=== PATIENT | female | born 1980 | race American Indian/Alaskan Native ===

== ENCOUNTER 2023-01-15 11:22 | Outpatient (CLI) | payer BC, OTHER, SELFPAY ==
[2023-01-15 23:43] LABS: Chlamydia DNA Amplified* NOT DETECTED (No Detected); GC DNA Amplified* NOT DETECTED (No Detected)
== END 2023-01-15 11:23 | disposition home or self-care (01) ==
PROVIDERS: Visit Provider Registered Nurse
DX: R10.2 Pelvic and perineal pain (principal)
CPT/HCPCS: 87086; 87186; 87491; 87591

== ENCOUNTER 2023-02-19 12:59 | Outpatient (CLI) | payer BC, SELFPAY | END 2023-02-19 13:00 | disposition home or self-care (01) | PROVIDERS: Visit Provider Family Medicine | DX: R10.11 Right upper quadrant pain (principal); F19.91 Other psychoactive substance use, unspecified, in remission | CPT/HCPCS: 80053; 80306; 83690; 84443 ==

== ENCOUNTER 2023-04-09 15:45 | Outpatient (CLI) | payer BC, SELFPAY ==
--- NOTE | 2023-04-09 16:00 | CRLHL7_ITS ---
For Patients: As a result of the Century Cures Act, medical imaging exams and procedure reports are released immediately into your electronic medical record. You may view this report before your referring provider. If you have questions, please contact your health care provider. INDICATION: Abdominal pain COMPARISON: none TECHNIQUE: Real time henry scale imaging and color Doppler analysis was performed of the right upper quadrant. FINDINGS: The liver measures 18.7 cm. Increased echotexture noted throughout the liver. No intrahepatic mass. There is a normal appearance of the hepatic IVC and proximal abdominal aorta. There is no evidence of ascites. The gallbladder is of normal size and there is no evidence of intraluminal stones or sludge. The gallbladder wall measures 2.2 mm in thickness. The common bile duct is of normal size and measures 5.4 mm in diameter at the level of the pasha hepatis. The pancreas appears normal. There is no evidence of a stone or hydronephrosis within the right kidney. The right kidney measures 11.5 cm in length. IMPRESSION: Hepatic steatosis and hepatomegaly. Dictated by Alfredito Guzman MD @ 04/10/2023 11:53:24 AM (Electronically Signed)
== END 2023-04-09 15:46 | disposition home or self-care (01) ==
PROVIDERS: PCP Family Medicine; Visit Provider Family Medicine
DX: R10.9 Unspecified abdominal pain (principal); K76.0 Fatty (change of) liver, not elsewhere classified
CPT/HCPCS: 76705

== ENCOUNTER 2023-05-22 14:42 | Outpatient (CLI) | payer BC, SELFPAY ==
--- NOTE | 2023-05-22 14:40 | CRLHL7_ITS ---
For Patients: As a result of the Century Cures Act, medical imaging exams and procedure reports are released immediately into your electronic medical record. You may view this report before your referring provider. If you have questions, please contact your health care provider. BILATERAL SCREENING MAMMOGRAM WITH COMPUTER-AIDED DETECTION AND TOMOSYNTHESIS TECHNIQUE: CC, MLO and implant-displaced views were obtained. These mammographic images have been obtained using full-field digital technique. These mammographic images were interpreted with the benefit of computer-aided detection. Breast tomosynthesis was used in this interpretation. COMPARISON FILM: None. This is a baseline study. FINDINGS: There are scattered areas of fibroglandular density. IMPRESSION: There is no radiographic evidence for malignancy. ASSESSMENT: BI-RADS Category 2: Benign RECOMMENDATION: Routine screening mammogram in 1 year. A lay language report of this examination will be provided to the patient. ALFREDITO HAYWOOD M.D. Diagnostic Radiologist [email or web address] Transcribed: 2:[address]/Dictated by: Alfredito Haywood MD @ 05/25/2023 10:23:00 AM (Electronically Signed)
== END 2023-05-22 14:43 | disposition home or self-care (01) ==
PROVIDERS: PCP Family Medicine; Visit Provider Family Medicine
DX: Z12.31 Encounter for screening mammogram for malignant neoplasm of breast (principal)
CPT/HCPCS: 77063; 77067

== ENCOUNTER 2023-06-03 13:07 | Outpatient (CLI) | payer BC, SELFPAY | END 2023-06-03 13:08 | disposition home or self-care (01) | LOC: RAD 13:09 | PROVIDERS: PCP Family Medicine; Visit Provider Family Medicine | DX: R01.1 Cardiac murmur, unspecified (principal); I34.0 Nonrheumatic mitral (valve) insufficiency; R10.9 Unspecified abdominal pain | CPT/HCPCS: 93306 ==

== ENCOUNTER 2024-10-25 12:12 | Outpatient (CLI) | payer BC, SELFPAY ==
[2024-10-25 18:40] LABS: Bacterial Vaginosis* POSITIVE (Negative); Candida glab/krus NOT DETECTED (No Detected); Candida species NOT DETECTED (No Detected); Trichomonas vaginalis NOT DETECTED (No Detected)
[2024-10-25 19:12] LABS: Chlamydia DNA Amplified* NOT DETECTED (No Detected); GC DNA Amplified* NOT DETECTED (No Detected)
[2024-10-28 20:21] LABS: HPV Source Cervix; HPV, High Risk by TMA Not Detected
[2024-11-01 14:06] LABS: Pap Test Reviewed by Path Done
== END 2024-10-25 12:13 | disposition home or self-care (01) ==
PROVIDERS: Visit Provider Registered Nurse
DX: N93.9 Abnormal uterine and vaginal bleeding, unspecified (principal); Z11.3 Encounter for screening for infections with a predominantly sexual mode of transmission; Z12.4 Encounter for screening for malignant neoplasm of cervix; Z11.4 Encounter for screening for human immunodeficiency virus [HIV]; Z11.51 Encounter for screening for human papillomavirus (HPV)
CPT/HCPCS: 81513; 86592; 86703; 86803; 87340; 87481; 87491; 87591; 87624; 87625; 87661; 88141; 88142

== ENCOUNTER 2024-10-27 14:39 | Outpatient (CLI) | payer BC, SELFPAY ==
--- OUTSIDE RECORDS SUMMARY | 2008-03-26 22:37 | XMS_ITS | Encounter Summary ---
Author Organization [facility] Address [address] [place] [address] Care Team Providers Care Air Crew Member Name Role Phone Jessica Espinosa MD Primary Care Provider [phone] Lulu Lopez PROOF LOAD MECHANIC Unavailable Encounter Details Date Type Department Care Team (Late st Contact Info) Description 03/26/2008 9:37 PM [facility] in [address] [phone] Farhad Marroquin MD [facility] [address] [facility] [address] [place], [place] [address] Social History Tobacco Use Types Packs/Day Years Used Date Smoking Tobacco: Former Cigarettes 0.5 16 0 05/12/1992 - 05/12/2008 Smokeless Tobacco: Former Comments:started age 11 Alcohol Use Standard Drinks/Week Comments No 0 (1 standard drink = 0.6 oz pur e alcohol) quit Comments No Sex and Gender Information Value Date Recorded Sex Assigned at Female 07/15/2023 10:49 AM CDT Legal Sex Female 4:14 AM BUSINESS PROCESS COORDINATOR Gender Identity Female 07/15/2023 10:49 AM CDT Sexual Orientation Bisexual 07/15/2023 10 :49 AM CDT Occupation Industry Job Start Date Job End Date homemaker Not on file Not on file Not on file Not on file Not on file Not on file Not on file documented as of this encounter Plan of Treatment Not on file documented as of this encounter Visit Diagnoses Not on filedocumented in this encounter Additional Health Concerns Infection Onset Date Last Indicated Resolved Time Rule Out COVID-19 05/17/2021 05/17/2021 05/18/2021 2:11 AM BUSINESS PROCESS COORDINATOR documented as of this encounter Care Teams Air Crew Member Relationship Specialty Start Date End Date Jessica Espinosa MD PCP - General 07/28/07 Lulu Lopez NP [facility] 701 [facility] 95 [place] [address] PCP - Obstetrics/Gynecology 02/05/07 documented as of this encounter
--- OUTSIDE RECORDS SUMMARY | 2008-04-02 01:02 | XMS_ITS | Encounter Summary ---
Author Organization [place] Address [address] [place] [address] Care Team Providers Care Nuclear Waste Process Operator Name Role Phone Jessica Espinosa MD Primary Care Provider [phone] Lulu Lopez SHODER FILLER Unavailable Encounter Details Date Type Department Care Team (Late st Contact Info) Description 04/02/2008 12:02 AM [facility] in [address] [phone] Jarett Gonzalez MD [address] [place], [place] [phone] Social History Tobacco Use Types Packs/Day Years [...] AM CDT Legal Sex Female 4:14 AM FORGING ENGINEER Gender Identity Female 07/15/2023 10:49 AM CDT [...] Out COVID-19 05/17/2021 05/17/2021 05/18/2021 2:11 AM FORGING ENGINEER documented as of this encounter Care Teams Nuclear Waste Process Operator Relationship Specialty Start Date End Date Jessica Espinosa MD PCP - General 07/28/07 Lulu Lopez NP [facility] 701 [facility] 95 [place] [address] PCP - Obstetrics/Gynecology 02/05/07 documented as of this encounter
--- OUTSIDE RECORDS SUMMARY | 2008-04-02 16:15 | XMS_ITS | Encounter Summary ---
Author Organization [place] Address [address] [place] [address] Care Team Providers Care Chemical Project Engineer Name Role Phone Jessica Espinosa MD Primary Care Provider [phone] Lulu Lopez TRIM SETTER HELPER Unavailable Encounter Details Date Type Department Care Team (Late st Contact Info) Description 04/02/2008 3:15 PM [facility] in [address] [phone] Farhad Unger MD [address] [place], [place] [phone] Social History Tobacco Use Types Packs/Day Years [...] AM CDT Legal Sex Female 4:14 AM TRAIN OPERATOR Gender Identity Female 07/15/2023 10:49 AM CDT [...] Out COVID-19 05/17/2021 05/17/2021 05/18/2021 2:11 AM TRAIN OPERATOR documented as of this encounter Care Teams Chemical Project Engineer Relationship Specialty Start Date End Date Jessica Espinosa MD PCP - General 07/28/07 Lulu Lopez NP [facility] 701 [facility] [address] [facility] 95 [place] [address] PCP - Obstetrics/Gynecology 02/05/07 documented as of this encounter
--- OUTSIDE RECORDS SUMMARY | 2008-04-02 19:11 | XMS_ITS | Encounter Summary ---
Author Organization [place] Address [address] [place] [address] Care Team Providers Care De Ionizer Operator Name Role Phone Jessica Espinosa MD Primary Care Provider [phone] Lulu Lopez TELECOMMUNICATIONS ENGINEER Unavailable Encounter Details Date Type Department Care Team (Late st Contact Info) Description 04/02/2008 6:11 PM [facility] in [address] [phone] Farhad Unger MD [address] [place], [place] [phone] Social History Tobacco Use Types Packs/Day Years [...] AM CDT Legal Sex Female 4:14 AM BLAST FURNACE AUXILIARIES SUPERVISOR Gender Identity Female 07/15/2023 10:49 AM CDT [...] Out COVID-19 05/17/2021 05/17/2021 05/18/2021 2:11 AM BLAST FURNACE AUXILIARIES SUPERVISOR documented as of this encounter Care Teams De Ionizer Operator Relationship Specialty Start Date End Date Jessica Espinosa MD PCP - General 07/28/07 Lulu Lopez NP [facility] 701 [facility] [address] [place] [address] PCP - Obstetrics/Gynecology 02/05/07 documented as of this encounter
--- OUTSIDE RECORDS SUMMARY | 2008-04-15 00:25 | XMS_ITS | Encounter Summary ---
Author Organization [place] Address [address] [place] [address] Care Team Providers Care Machine Stone Polisher Apprentice Name Role Phone Jessica Espinosa MD Primary Care Provider [phone] Lulu Lopez DEAF INTERPRETER Unavailable Encounter Details Date Type Department Care Team (Late st Contact Info) Description 04/14/2008 11:25 PM [facility] in [address] [address] Jarett Gonzalez MD [address] [place], [place] [phone] Social History Tobacco Use Types Packs/Day Years [...] AM CDT Legal Sex Female 4:14 AM BEHAVIORAL SCIENCES INSTRUCTOR Gender Identity Female 07/15/2023 10:49 AM CDT [...] Out COVID-19 05/17/2021 05/17/2021 05/18/2021 2:11 AM BEHAVIORAL SCIENCES INSTRUCTOR documented as of this encounter Care Teams Machine Stone Polisher Apprentice Relationship Specialty Start Date End Date Jessica Espinosa MD PCP - General 07/28/07 Lulu Lopez NP [facility] 701 [facility] 95 [place] [address] PCP - Obstetrics/Gynecology 02/05/07 documented as of this encounter
--- OUTSIDE RECORDS SUMMARY | 2008-04-23 04:27 | XMS_ITS | Encounter Summary ---
Author Organization [place] Address [address] [place] [address] Care Team Providers Care Web Applications Architect Name Role Phone Jessica Espinosa MD Primary Care Provider Lulu Lopez DRY FOOD PRODUCTS MIXER Unavailable Encounter Details Date Type Department Care Team (Late st Contact Info) Description 04/23/2008 3:27 AM [facility] in [address] [phone] Tang Infante MD [address] [place] [address] Social History Tobacco Use Types Packs/Day Years [...] AM CDT Legal Sex Female 4:14 AM SHAKER PLATE OPERATOR Gender Identity Female 07/15/2023 10:49 AM [...] Out COVID-19 05/17/2021 05/17/2021 05/18/2021 2:11 AM SHAKER PLATE OPERATOR documented as of this encounter Care Teams Web Applications Architect Relationship Specialty Start Date End Date Jessica Espinosa MD PCP - General 07/28/07 Lulu Lopez NP [facility] [address] [place] [address] [address] [facility] [address] [place] [address] PCP - Obstetrics/Gynecology 02/05/07 documented as of this encounter
--- OUTSIDE RECORDS SUMMARY | 2008-05-11 22:17 | XMS_ITS | Encounter Summary ---
Author Organization [place] Address [address] [place] [address] Care Team Providers Care Community Representative Name Role Phone Jessica Espinosa MD Primary Care Provider [phone] Lulu Lopez CMM INSPECTOR Unavailable Encounter Details Date Type Department Care Team (Late st Contact Info) Description 05/11/2008 9:17 PM [facility] in [address] [phone] Delgado Holly MD [address] [place] [address] Social History Tobacco Use Types Packs/Day Years [...] AM CDT Legal Sex Female 4:14 AM PRESSER AND BLOCKER KNITTED GOODS Gender Identity Female 07/15/2023 10:49 AM CDT [...] Out COVID-19 05/17/2021 05/17/2021 05/18/2021 2:11 AM PRESSER AND BLOCKER KNITTED GOODS documented as of this encounter Care Teams Community Representative Relationship Specialty Start Date End Date Jessica Espinosa MD PCP - General 07/28/07 Lulu Lopez NP [facility] [address] [place] [address] [address] [facility] [address] [place] [address] PCP - Obstetrics/Gynecology 02/05/07 documented as of this encounter
--- OUTSIDE RECORDS SUMMARY | 2008-05-12 12:18 | XMS_ITS | Encounter Summary ---
Author Organization [place] Address [address] [place] [address] Care Team Providers Care Director Of Dietary Name Role Phone Jessica Espinosa MD Primary Care Provider [phone] Lulu Lopez RADIO COMMUNICATIONS SUPERINTENDENT Unavailable Encounter Details Date Type Department Care Team (Late st Contact Info) Description 05/12/2008 11:18 AM [facility] in [address] [phone] Jarett Gonzalez MD [address] [place], [place] [phone] Social History Tobacco Use Types Packs/Day Years [...] AM CDT Legal Sex Female 4:14 AM WELFARE ELIGIBILITY INTERVIEWER Gender Identity Female 07/15/2023 10:49 AM CDT [...] Out COVID-19 05/17/2021 05/17/2021 05/18/2021 2:11 AM WELFARE ELIGIBILITY INTERVIEWER documented as of this encounter Care Teams Director Of Dietary Relationship Specialty Start Date End Date Jessica Espinosa MD PCP - General 07/28/07 Lulu Lopez NP [facility] 701 [facility] [address] 95 [place] [address] PCP - Obstetrics/Gynecology 02/05/07 documented as of this encounter
--- OUTSIDE RECORDS SUMMARY | 2008-05-22 20:55 | XMS_ITS | Encounter Summary ---
Author Organization [place] Address [address] [place] [address] Care Team Providers Care Crayon Painter Name Role Phone Jessica Espinosa MD Primary Care Provider [phone] Lulu Lopez ASSET PROTECTION PROFESSIONAL Unavailable Encounter Details Date Type Department Care Team (Late st Contact Info) Description 05/22/2008 7:55 PM [facility] in [address] [phone] Farhad Unger MD [address] [place] [address] Social History Tobacco Use Types Packs/Day Years [...] AM CDT Legal Sex Female 4:14 AM SUPERVISOR COMMISSARY PRODUCTION Gender Identity Female 07/15/2023 10:49 AM CDT [...] Out COVID-19 05/17/2021 05/17/2021 05/18/2021 2:11 AM SUPERVISOR COMMISSARY PRODUCTION documented as of this encounter Care Teams Crayon Painter Relationship Specialty Start Date End Date Jessica Espinosa MD PCP - General 07/28/07 Lulu Lopez NP [facility] 701 [facility] [address]O [facility] 95 [place] [address] PCP - Obstetrics/Gynecology 02/05/07 documented as of this encounter
--- OUTSIDE RECORDS SUMMARY | 2008-05-26 17:17 | XMS_ITS | Encounter Summary ---
Author Organization [place] Address [address] [place] [address] Care Team Providers Care Kaiwhakahaere Name Role Phone Jessica Espinosa MD Primary Care Provider [phone] Lulu Lopez FLUE TILE PRESS OPERATOR Unavailable Encounter Details Date Type Department Care Team (Late st Contact Info) Description 05/26/2008 4:[address] [facility] in [address] [phone] Flavio Driver MD [address] [place] [address] Social History Tobacco Use Types Packs/Day Years [...] AM CDT Legal Sex Female 4:14 AM EMERGENCY GENERATOR MECHANIC Gender Identity Female 07/15/2023 10:49 AM CDT [...] Out COVID-19 05/17/2021 05/17/2021 05/18/2021 2:11 AM EMERGENCY GENERATOR MECHANIC documented as of this encounter Care Teams Kaiwhakahaere Relationship Specialty Start Date End Date Jessica Espinosa MD PCP - General 07/28/07 Lulu Lopez NP [facility] 701 [facility] [address]O [facility] 95 [place] [address] PCP - Obstetrics/Gynecology 02/05/07 documented as of this encounter
--- OUTSIDE RECORDS SUMMARY | 2008-06-20 06:47 | XMS_ITS | Encounter Summary ---
Author Organization [place] Address [address] [place] [address] Care Team Providers Care Enrollment Processor Name Role Phone Jessica Espinosa MD Primary Care Provider [phone] Lulu Lopez KOSHER DIETARY SERVICE SUPERVISOR Unavailable Encounter Details Date Type Department Care Team (Late st Contact Info) Description 06/20/2008 5:47 AM [facility] in [address] [phone] Farhad Marroquin MD [facility] [address] [facility] [address] [place], [place] [address] Social History Tobacco Use Types Packs/Day Years [...] AM CDT Legal Sex Female 4:14 AM TIE CUTTER Gender Identity Female 07/15/2023 10:49 AM CDT [...] Out COVID-19 05/17/2021 05/17/2021 05/18/2021 2:11 AM TIE CUTTER documented as of this encounter Care Teams Enrollment Processor Relationship Specialty Start Date End Date Jessica Espinosa MD PCP - General 07/28/07 Lulu Lopez NP [facility] 701 [facility] [address]O [facility] 95 [place] [address] PCP - Obstetrics/Gynecology 02/05/07 documented as of this encounter
--- OUTSIDE RECORDS SUMMARY | 2008-07-01 21:11 | XMS_ITS | Encounter Summary ---
Author Organization [place] Address [address] [place] [address] Care Team Providers Care Skilled Nursing Facility Counselor Name Role Phone Jessica Espinosa MD Primary Care Provider [phone] Lulu Lopez ANY COMMODITY BUYER Unavailable Encounter Details Date Type Department Care Team (Late st Contact Info) Description 07/01/2008 8:11 PM [facility] in [address] [phone] Delgado Holly MD [address] [place] [address] Social History Tobacco Use Types Packs/Day [...] AM CDT Legal Sex Female 4:14 AM STABLE MANAGER Gender Identity Female 07/15/2023 10:49 AM CDT [...] Out COVID-19 05/17/2021 05/17/2021 05/18/2021 2:11 AM STABLE MANAGER documented as of this encounter Care Teams Skilled Nursing Facility Counselor Relationship Specialty Start Date End Date Jessica Espinosa MD PCP - General 07/28/07 Lulu Lopez NP [facility] [address] [place] [address] [address] [facility] 95 [place] [address] PCP - Obstetrics/Gynecology 02/05/07 documented as of this encounter
--- OUTSIDE RECORDS SUMMARY | 2008-07-02 20:51 | XMS_ITS | Encounter Summary ---
Author Organization [place] Address [address] [place] [address] Care Team Providers Care Safety Engineer Name Role Phone Jessica Espinosa MD Primary Care Provider [phone] Lulu Lopez FIXED INCOME TRADING VICE PRESIDENT Unavailable Encounter Details Date Type Department Care Team (Late st Contact Info) Description 07/02/2008 7:51 PM [facility] in [address] [phone] Farhad Unger MD [address] [place], [place] [phone] Social History Tobacco Use Types Packs/Day Years [...] AM CDT Legal Sex Female 4:14 AM TOGGLE PRESS FOLDER AND FEEDER Gender Identity Female 07/15/2023 10:49 AM CDT [...] Out COVID-19 05/17/2021 05/17/2021 05/18/2021 2:11 AM TOGGLE PRESS FOLDER AND FEEDER documented as of this encounter Care Teams Safety Engineer Relationship Specialty Start Date End Date Jessica Espinosa MD PCP - General 07/28/07 Lulu Lopez NP [facility] 701 [facility] [address]O [facility] 95 [place] [address] PCP - Obstetrics/Gynecology 02/05/07 documented as of this encounter
--- OUTSIDE RECORDS SUMMARY | 2008-07-16 16:31 | XMS_ITS | Encounter Summary ---
Author Organization [place] Address [address] [place] [address] Care Team Providers Care Hot Roller Name Role Phone Jessica Espinosa MD Primary Care Provider [phone] Lulu Lopez APPRAISER IRRIGATION TAX Unavailable Encounter Details Date Type Department Care Team (Late st Contact Info) Description 07/16/2008 4:31 PM CDT [facility] in [address] [phone] Jarett Gonzalez MD [address] [place], [place] [phone] Social History Tobacco Use Types Packs/Day Years [...] AM CDT Legal Sex Female 4:14 AM PARATRANSIT DRIVER Gender Identity Female 07/15/2023 10:49 AM CDT [...] Out COVID-19 05/17/2021 05/17/2021 05/18/2021 2:11 AM PARATRANSIT DRIVER documented as of this encounter Care Teams Hot Roller Relationship Specialty Start Date End Date Jessica Espinosa MD PCP - General 07/28/07 Lulu Lopez NP [facility] 701 [facility] 95 [place] [address] PCP - Obstetrics/Gynecology 02/05/07 documented as of this encounter
--- OUTSIDE RECORDS SUMMARY | 2008-09-17 23:14 | XMS_ITS | Encounter Summary ---
Author Organization [place] Address [address] [place] [address] Care Team Providers Care River Rat Name Role Phone Jessica Espinosa MD Primary Care Provider [phone] Lulu Lopez COMMISSION SPECIALIST Unavailable Encounter Details Date Type Department Care Team (Late st Contact Info) Description 09/17/2008 11:14 PM CDT [facility] in [address] [phone] Farhad Marroquin MD [facility] [address] [facility] [address] [place], [place] [address] Social History Tobacco Use Types Packs/Day Years [...] AM CDT Legal Sex Female 4:14 AM HUMAN FACTORS ERGONOMIST Gender Identity Female 07/15/2023 10:49 AM CDT [...] Out COVID-19 05/17/2021 05/17/2021 05/18/2021 2:11 AM HUMAN FACTORS ERGONOMIST documented as of this encounter Care Teams River Rat Relationship Specialty Start Date End Date Jessica Espinosa MD PCP - General 07/28/07 Lulu Lopez NP [facility] [address] [place] [address] [address] [facility] 95 [place] [address] PCP - Obstetrics/Gynecology 02/05/07 documented as of this encounter
--- OUTSIDE RECORDS SUMMARY | 2009-01-16 16:05 | XMS_ITS | Encounter Summary ---
Author Organization [place] Address [address] [place] [address] Care Team Providers Care Financial Sales Manager Name Role Phone Jessica Espinosa MD Primary Care Provider [phone] Lulu Lopez HANDS PARTER Unavailable Encounter Details Date Type Department Care Team (Late st Contact Info) Description 01/16/2009 4:05 PM CDT [facility] in [address] [phone] Jarett Gonzalez MD [address] [place] [address] Social History Tobacco Use Types Packs/Day Years [...] AM CDT Legal Sex Female 4:14 AM TRANSIT AUTHORITY POLICE OFFICER Gender Identity Female 07/15/2023 10:49 AM CDT [...] Out COVID-19 05/17/2021 05/17/2021 05/18/2021 2:11 AM TRANSIT AUTHORITY POLICE OFFICER documented as of this encounter Care Teams Financial Sales Manager Relationship Specialty Start Date End Date Jessica Espinosa MD PCP - General 07/28/07 Lulu Lopez NP [facility] 701 [facility] [address] 95 [place] [address] PCP - Obstetrics/Gynecology 02/05/07 documented as of this encounter
--- OUTSIDE RECORDS SUMMARY | 2009-01-30 07:38 | XMS_ITS | Encounter Summary ---
Author Organization [place] Address [address] [place] [address] Care Team Providers Care Director Of Scientific Research Name Role Phone Jessica Espinosa MD Primary Care Provider [phone] Lulu Lopez MOTEL FRONT DESK ATTENDANT Unavailable Encounter Details Date Type Department Care Team (Late st Contact Info) Description 01/30/2009 7:38 AM CDT [facility] in [address] [phone] Melissa Pierce MD [facility] [place], [place] [phone] Social History Tobacco Use Types Packs/Day Years [...] AM CDT Legal Sex Female 4:14 AM RESPONDER Gender Identity Female 07/15/2023 10:49 AM CDT [...] Out COVID-19 05/17/2021 05/17/2021 05/18/2021 2:11 AM RESPONDER documented as of this encounter Care Teams Director Of Scientific Research Relationship Specialty Start Date End Date Jessica Espinosa MD PCP - General 07/28/07 Lulu Lopez NP [facility] [address] [place] [address] [facility] 95 [place] [address] PCP - Obstetrics/Gynecology 02/05/07 documented as of this encounter
--- OUTSIDE RECORDS SUMMARY | 2009-04-14 16:57 | XMS_ITS | Encounter Summary ---
Author Organization [place] Address [address] [place] [address] Care Team Providers Care Entry Level Sales Associate Name Role Phone Jessica Espinosa MD Primary Care Provider [phone] Lulu Lopez INJECTION MACHINE OPERATOR Unavailable Sean Ortega MD Unavailable [phone] Encounter Details Date Type Department Care Team (Late st Contact Info) Description 04/14/2009 3:57 PM MEDICATION COORDINATOR [facility] in [address] [phone] Jarett Gonzalez MD [address] [place], [place] [phone] Social History Tobacco Use Types Packs/Day Years [...] AM CDT Legal Sex Female 4:14 AM MEDICATION COORDINATOR Gender Identity Female 07/15/2023 10:49 AM [...] Out COVID-19 05/17/2021 05/17/2021 05/18/2021 2:11 AM MEDICATION COORDINATOR documented as of this encounter Care Teams Entry Level Sales Associate Relationship Specialty Start Date End Date Jessica Espinosa MD PCP - General 07/28/07 Lulu Lopez NP [facility] [place] [address] [place] [address] PCP - Obstetrics/Gynecology 02/05/07 Sean Ortega MD [facility] [place] [address] [place] [address] PCP - ENT 02/22/09 03/17/18 documented as of this encounter
--- OUTSIDE RECORDS SUMMARY | 2009-10-04 18:34 | XMS_ITS | Encounter Summary ---
Author Organization [place] Address [address] [place] [address] Care Team Providers Care Edger Hand Name Role Phone Jessica Espinosa MD Primary Care Provider [phone] Lulu Lopez NP Unavailable Sean Ortega MD Unavailable [phone] Myranda Adams MD Unavailable [phone] Encounter Details Date Type Department Care Team (Late st Contact Info) Description 10/04/2009 6:34 PM CDT [facility] in [facility] [address] [place] [phone] Kylie Garcia PA-C [facility] [address] [place] [address] [address] [place], [place] [phone] Social History Tobacco Use Types Packs/Day Years [...] AM CDT Legal Sex Female 4:14 AM APPRAISAL ANALYST Gender Identity Female 07/15/2023 10:49 AM CDT [...] Out COVID-19 05/17/2021 05/17/2021 05/18/2021 2:11 AM APPRAISAL ANALYST documented as of this encounter Care Teams Edger Hand Relationship Specialty Start Date End Date Jessica Espinosa MD PCP - General 07/28/07 Lulu Lopez NP [facility] [address] [place] [address] PCP - Obstetrics/Gynecology 02/05/07 Sean Ortega MD [facility] [place] [address] [place] [address] PCP - ENT 02/22/09 03/17/18 Myranda Adams MD [facility] [place] [address] [place] [address] PCP - Neurology 05/24/09 09/16/24 documented as of this encounter
--- OUTSIDE RECORDS SUMMARY | 2009-10-04 23:33 | XMS_ITS | Encounter Summary ---
Author Organization [place] Address [address] [place] [address] Care Team Providers Care Mortgage Loan Processor Name Role Phone Jessica Espinosa MD Primary Care Provider [phone] Lulu Lopez NP Unavailable Sean Ortega MD Unavailable [phone] Myranda Adams MD Unavailable [phone] Encounter Details Date Type Department Care Team (Late st Contact Info) Description 10/04/2009 11:33 PM CDT [facility] in [address] [address] Jarett Gonzalez MD [address] [place], [place] [id number] Transfer Form Social History Tobacco Use Types Packs/Day Years [...] AM CDT Legal Sex Female 4:14 AM DAIRY WORKER Gender Identity Female 07/15/2023 10:49 AM CDT [...] Out COVID-19 05/17/2021 05/17/2021 05/18/2021 2:11 AM DAIRY WORKER documented as of this encounter Care Teams Mortgage Loan Processor Relationship Specialty Start Date End Date Jessica Espinosa MD PCP - General 07/28/07 Lulu Lopez NP [facility] [place] [address] [place] [address] PCP - Obstetrics/Gynecology 02/05/07 Sean Ortega MD [facility] [place] [address] [place] [address] PCP - ENT 02/22/09 03/17/18 Myranda Adams MD [facility] [place] [address] [place] [address] PCP - Neurology 05/24/09 09/16/24 documented as of this encounter
--- OUTSIDE RECORDS SUMMARY | 2009-10-10 14:15 | XMS_ITS | Encounter Summary ---
Author Organization [place] Address [address] [place] [address] Care Team Providers Care Plaster Mold Maker Name Role Phone Jessica Espinosa MD Primary Care Provider [phone] Lulu Lopez NP Unavailable Sean Ortega MD Unavailable [phone] Myranda Adams MD Unavailable [phone] Encounter Details Date Type Department Care Team (Late st Contact Info) Description 10/10/2009 2:15 PM CDT [facility] in [address] [address] Jessica Espinosa MD [address] [place] [address] Social History Tobacco Use Types [...] AM CDT Legal Sex Female 4:14 AM ROOFING CONTRACTOR Gender Identity Female 07/15/2023 10:49 AM CDT [...] Out COVID-19 05/17/2021 05/17/2021 05/18/2021 2:11 AM ROOFING CONTRACTOR documented as of this encounter Care Teams Plaster Mold Maker Relationship Specialty Start Date End Date Jessica Espinosa MD PCP - General 07/28/[address] [facility] [place] [address] [place] [address] PCP - Obstetrics/Gynecology 02/05/[address] [facility] [place] [address] [place] [address] PCP - ENT 02/22/09 03/17/[address] [facility] [place] [address] [place] [address] PCP - Neurology 05/24/09 09/16/24 documented as of this encounter
--- OUTSIDE RECORDS SUMMARY | 2009-11-05 19:57 | XMS_ITS | Encounter Summary ---
Author Organization [place] Address [address] [place] [address] Care Team Providers Care Project Drilling Engineer Name Role Phone Jessica sEpinosa MD Primary Care Provider [phone] Lulu Lopez NP Unavailable Sean Ortega MD Unavailable [phone] Myranda Adams MD Unavailable [phone] Encounter Details Date Type Department Care Team (Late st Contact Info) Description 11/05/2009 7:57 PM CDT [facility] in [facility] [address] [place] [address] Farhad Marroquin MD [facility] [address] [place], [place] [id number] Social History Tobacco Use Types Packs/Day Years [...] AM CDT Legal Sex Female 4:14 AM MANAGEMENT TRAINEE Gender Identity Female 07/15/2023 10:49 AM CDT [...] Out COVID-19 05/17/2021 05/17/2021 05/18/2021 2:11 AM MANAGEMENT TRAINEE documented as of this encounter Care Teams Project Drilling Engineer Relationship Specialty Start Date End Date Jessica Espinosa MD PCP - General 07/28/07 Lulu Lopez NP [facility] [place] [address] [place] [address] PCP - Obstetrics/Gynecology 02/05/07 Sean Ortega MD [facility] [place] [address] [place] [address] PCP - ENT 02/22/09 03/17/18 Myranda Adams MD [facility] [place] [address] [place] [address] PCP - Neurology 05/24/09 09/16/24 documented as of this encounter
--- OUTSIDE RECORDS SUMMARY | 2010-01-11 08:15 | XMS_ITS | Encounter Summary ---
Author Organization [place] Address [address] [place] [address] Care Team Providers Care Memorandum Statement Clerk Name Role Phone Jessica Espinosa MD Primary Care Provider [phone] Lulu Lopez NP Unavailable Sean Ortega MD Unavailable [phone] Myranda Adams MD Unavailable [phone] Encounter Details Date Type Department Care Team (Late st Contact Info) Description 01/11/2010 8:15 AM CDT [facility] in [address] [address] Jessica Espinosa MD [address] [place] [address] Social History Tobacco Use Types [...] AM CDT Legal Sex Female 4:14 AM BRANCH OPERATIONS COORDINATOR Gender Identity Female 07/15/2023 10:49 AM [...] Out COVID-19 05/17/2021 05/17/2021 05/18/2021 2:11 AM BRANCH OPERATIONS COORDINATOR documented as of this encounter Care Teams Memorandum Statement Clerk Relationship Specialty Start Date End Date Jessica Espinosa MD PCP - General 07/28/[address] [facility] [place] [address] [place] [address] PCP - Obstetrics/Gynecology 02/05/[address] [facility] [place] [address] [place] [address] PCP - ENT 02/22/09 03/17/[address] [facility] [place] [address] [place] [address] PCP - Neurology 05/24/09 09/16/24 documented as of this encounter
--- OUTSIDE RECORDS SUMMARY | 2010-07-22 12:42 | XMS_ITS | Encounter Summary ---
Author Organization [place] Address [address] [place] [address] Care Team Providers Care Geophysical Data Technician Name Role Phone Jessica Espinosa MD Primary Care Provider [phone] Lulu Lopez NP Unavailable Sean Ortega MD Unavailable [phone] Myranda Adams MD Unavailable [phone] Encounter Details Date Type Department Care Team (Late st Contact Info) Description 07/22/2010 12:42 PM CDT [facility] in [address] [address] Jessica Espinosa MD [address] [place] [address] Social History Tobacco Use Types [...] AM CDT Legal Sex Female 4:14 AM STRATEGIC SOURCING SPECIALIST Gender Identity Female 07/15/2023 10:49 AM CDT [...] Out COVID-19 05/17/2021 05/17/2021 05/18/2021 2:11 AM STRATEGIC SOURCING SPECIALIST documented as of this encounter Care Teams Geophysical Data Technician Relationship Specialty Start Date End Date Jessica Espinosa MD PCP - General 07/28/07 Lulu Lopez NP [facility] [place] [address] [place] [address] PCP - Obstetrics/Gynecology 02/05/07 Sean Ortega MD [facility] [place] [address] [place] [address] PCP - ENT 02/22/09 03/17/18 Myranda Adams MD [facility] [place] [address] [place] [address] PCP - Neurology 05/24/09 09/16/24 documented as of this encounter
--- OUTSIDE RECORDS SUMMARY | 2010-10-29 16:46 | XMS_ITS | Encounter Summary ---
Author Organization [place] Address [address] [place] [address] Care Team Providers Care Wood Hacker Name Role Phone Jessica Espinosa MD Primary Care Provider Lulu Lopez NP Unavailable Sean Ortega MD Unavailable [phone] Myranda Adams MD Unavailable [phone] Ralph Oh MD Unavailable Unavailable Encounter Details Date Type Department Care Team (Late st Contact Info) Description 10/29/2010 4:46 PM CDT [facility] in [address] [address] [place], [place] [address] [place] [address] Social History Tobacco Use Types [...] AM CDT Legal Sex Female 4:14 AM SENIOR IT PROJECT MANAGER Gender Identity Female 07/15/2023 10:49 AM [...] Out COVID-19 05/17/2021 05/17/2021 05/18/2021 2:11 AM SENIOR IT PROJECT MANAGER documented as of this encounter Care Teams Wood Hacker Relationship Specialty Start Date End Date Jessica Espinosa MD PCP - General 07/28/07 Lulu Lopez NP [facility] [place] [address] [place] [address] PCP - Obstetrics/Gynecology 02/05/07 Sean Ortega MD [facility] [place] [address] [place] [address] PCP - ENT 02/22/09 03/17/18 Myranda Adams MD [facility] [place] [address] [place] [address] PCP - Neurology 05/24/09 09/16/24 Ralph Oh MD RETIRED PCP - Orthopaedics Orthopedics 07/31/10 07/17/23 documented as of this encounter
--- OUTSIDE RECORDS SUMMARY | 2010-12-07 15:45 | XMS_ITS | Encounter Summary ---
Author Organization [place] Address [address] [place] [address] Care Team Providers Care Control Systems Drafting Officer Name Role Phone Jessica Espinosa MD Primary Care Provider [phone] Lulu Lopez NP Unavailable Sean Ortega MD Unavailable [phone] Myranda Adams MD Unavailable [phone] Ralph Oh MD Unavailable Unavailable Encounter Details Date Type Department Care Team (Late st Contact Info) Description 12/07/2010 3:[address] [facility] in [address] [address] Delgado Holly MD [address] [place] [id number] Social History Tobacco Use Types Packs/Day Years [...] AM CDT Legal Sex Female 4:14 AM LOCOMOTIVE FIRER Gender Identity Female 07/15/2023 10:49 AM CDT [...] Out COVID-19 05/17/2021 05/17/2021 05/18/2021 2:11 AM LOCOMOTIVE FIRER documented as of this encounter Care Teams Control Systems Drafting Officer Relationship Specialty Start Date End Date Jessica Espinosa MD PCP - General 07/28/07 Lulu Lopez NP [facility] [place] [address] [place] [address] PCP - Obstetrics/Gynecology 02/05/07 Sean Ortega MD [facility] [place] [address] [place] [address] PCP - ENT 02/22/09 03/17/18 Myranda Adams MD [facility] [place] [address] [place] [address] PCP - Neurology 05/24/09 09/16/24 Ralph Oh MD RETIRED PCP - Orthopaedics Orthopedics 07/31/10 07/17/23 documented as of this encounter
--- OUTSIDE RECORDS SUMMARY | 2011-01-25 20:52 | XMS_ITS | Encounter Summary ---
Author Organization [place] Address [address] [place] [address] Care Team Providers Care Crossing Supervisor Name Role Phone Jessica Espinosa MD Primary Care Provider [phone] Lulu Lopez NP Unavailable Sean Ortega MD Unavailable [phone] Myranda Adams MD Unavailable [phone] Ralph Oh MD Unavailable Unavailable Encounter Details Date Type Department Care Team (Late st Contact Info) Description 01/25/2011 8:52 PM CDT [facility] in [address] [address] Farhad Unger MD [address] [place] [address] Social History Tobacco Use Types [...] AM CDT Legal Sex Female 4:14 AM DOG OBEDIENCE INSTRUCTOR Gender Identity Female 07/15/2023 10:49 AM [...] Out COVID-19 05/17/2021 05/17/2021 05/18/2021 2:11 AM DOG OBEDIENCE INSTRUCTOR documented as of this encounter Care Teams Crossing Supervisor Relationship Specialty Start Date End Date Jessica Espinosa MD PCP - General 07/28/07 Lulu Lopez NP [facility] [place] [address] [place] [address] PCP - Obstetrics/Gynecology 02/05/07 Sean Ortega MD [facility] [place] [address] [place] [address] PCP - ENT 02/22/09 03/17/18 Myranda Adams MD [facility] [place] [address] [place] [address] PCP - Neurology 05/24/09 09/16/24 Ralph Oh MD RETIRED PCP - Orthopaedics Orthopedics 07/31/10 07/17/23 documented as of this encounter
--- OUTSIDE RECORDS SUMMARY | 2011-03-04 08:00 | XMS_ITS | Encounter Summary ---
Author Organization [place] Address [address] [place] [address] Care Team Providers Care Superintendent Of Generation Name Role Phone Jessica Espinosa MD Primary Care Provider Lulu Lopez NP Unavailable Sean Ortega MD Unavailable [phone] Myranda Adams MD Unavailable [phone] Ralph Oh MD Unavailable Unavailable Encounter Details Date Type Department Care Team (Late st Contact Info) Description 03/04/2011 8:00 AM CDT [facility] in [address] [address] Ralph Oh MD RETIRED Social History Tobacco Use Types Packs/Day Years [...] AM CDT Legal Sex Female 4:14 AM GLASS CUTTING MACHINE OPERATOR Gender Identity Female 07/15/2023 10:49 AM [...] Out COVID-19 05/17/2021 05/17/2021 05/18/2021 2:11 AM GLASS CUTTING MACHINE OPERATOR documented as of this encounter Care Teams Superintendent Of Generation Relationship Specialty Start Date End Date Jessica sEpinosa MD PCP - General 07/28/07 Lulu Lopez NP [facility] [place] [address] [place], [place] [address] PCP - Obstetrics/Gynecology 02/05/07 Sean Ortega MD [facility] [place] [address] [place] [address] PCP - ENT 02/22/09 03/17/18 Myranda Adams MD [facility] [place] [address] [place] [address] PCP - Neurology 05/24/09 09/16/24 Ralph Oh MD RETIRED PCP - Orthopaedics Orthopedics 07/31/10 07/17/23 documented as of this encounter
--- OUTSIDE RECORDS SUMMARY | 2011-04-09 23:14 | XMS_ITS | Encounter Summary ---
Author Organization [place] Address [address] [place] [address] Care Team Providers Care Motor Lodge Clerk Name Role Phone Jessica Espinosa MD Primary Care Provider [phone] Lulu Lopez NP Unavailable Sean Ortega MD Unavailable [phone] Myranda Adams MD Unavailable [phone] Ralph Oh MD Unavailable Unavailable Encounter Details Date Type Department Care Team (Late st Contact Info) Description 04/09/2011 10:14 PM [facility] in [address] [address] Farahd Unger MD [address] [place] [address] Social History Tobacco Use Types [...] AM CDT Legal Sex Female 4:14 AM SWITCHGEAR REPAIRER Gender Identity Female 07/15/2023 10:49 AM CDT [...] Out COVID-19 05/17/2021 05/17/2021 05/18/2021 2:11 AM SWITCHGEAR REPAIRER documented as of this encounter Care Teams Motor Lodge Clerk Relationship Specialty Start Date End Date Jessica Espinosa MD PCP - General 07/28/07 Lulu Lopez NP [facility] [place] [address] [place] [address] PCP - Obstetrics/Gynecology 02/05/07 Sean Ortega MD [facility] [place] [address] [place] [address] PCP - ENT 02/22/09 03/17/18 Myranda Adams MD [facility] [place] [address] [place] [address] PCP - Neurology 05/24/09 09/16/24 Ralph Oh MD RETIRED PCP - Orthopaedics Orthopedics 07/31/10 07/17/23 documented as of this encounter
--- OUTSIDE RECORDS SUMMARY | 2011-04-30 11:39 | XMS_ITS | Encounter Summary ---
Author Organization [place] Address [address] [place] [address] Care Team Providers Care Premium Note Interest Calculator Clerk Name Role Phone Jessica Espinosa MD Primary Care Provider [phone] Lulu Lopez NP Unavailable Sean Ortega MD Unavailable [phone] Myranda Adams MD Unavailable [phone] Ralph Oh MD Unavailable Unavailable Encounter Details Date Type Department Care Team (Late st Contact Info) Description 04/30/2011 10:39 AM [facility] in [address] [address] Stewart Howell MD [address] [place] [address] Social History Tobacco Use Types [...] AM CDT Legal Sex Female 4:14 AM TERRITORY ACCOUNT MANAGER Gender Identity Female 07/15/2023 10:49 AM [...] Out COVID-19 05/17/2021 05/17/2021 05/18/2021 2:11 AM TERRITORY ACCOUNT MANAGER documented as of this encounter Care Teams Premium Note Interest Calculator Clerk Relationship Specialty Start Date End Date Jessica Espinosa MD PCP - General 07/28/07 Lulu Lopez NP [facility] [place] [address] [place] [address] PCP - Obstetrics/Gynecology 02/05/07 Sean Ortega MD [facility] [place] [address] [place] [address] PCP - ENT 02/22/09 03/17/18 Myranda Adams MD [facility] [place] [address] [place] [address] PCP - Neurology 05/24/09 09/16/24 Ralph Oh MD RETIRED PCP - Orthopaedics Orthopedics 07/31/10 07/17/23 documented as of this encounter
--- OUTSIDE RECORDS SUMMARY | 2011-05-06 23:59 | XMS_ITS | Encounter Summary ---
Author Organization [place] Address [address] [place] [address] Care Team Providers Care Telephone Answerer Name Role Phone Jessica Espinosa MD Primary Care Provider [phone] Lulu Lopez NP Unavailable Sean Ortega MD Unavailable [phone] Myranda Adams MD Unavailable [phone] Ralph Oh MD Unavailable Unavailable Encounter Details Date Type Department Care Team (Late st Contact Info) Description 05/06/2011 10:59 PM ELECTRICIAN REFINERY [facility] in [address] [address] Farhad Unger MD [address] [place] [address] Social History Tobacco Use Types [...] AM CDT Legal Sex Female 4:14 AM ELECTRICIAN REFINERY Gender Identity Female 07/15/2023 10:49 AM CDT [...] Out COVID-19 05/17/2021 05/17/2021 05/18/2021 2:11 AM ELECTRICIAN REFINERY documented as of this encounter Care Teams Telephone Answerer Relationship Specialty Start Date End Date Jessica Espinosa MD PCP - General 07/28/07 Lulu Lopez NP [facility] [place] [address] [place] [address] PCP - Obstetrics/Gynecology 02/05/07 Sean Ortega MD [facility] [place] [address] [place] [address] PCP - ENT 02/22/09 03/17/18 Myranda Adams MD [facility] [place] [address] [place] [address] PCP - Neurology 05/24/09 09/16/24 Ralph Oh MD RETIRED PCP - Orthopaedics Orthopedics 07/31/10 07/17/23 documented as of this encounter
--- OUTSIDE RECORDS SUMMARY | 2011-06-23 21:49 | XMS_ITS | Encounter Summary ---
Author Organization [place] Address [address] [place] [address] Care Team Providers Care Creel Hand Name Role Phone Jessica Espinosa MD Primary Care Provider [phone] Lulu Lopez NP Unavailable Sean Ortega MD Unavailable [phone] Myranda Adams MD Unavailable [phone] Ralph Oh MD Unavailable Unavailable Encounter Details Date Type Department Care Team (Late st Contact Info) Description 06/23/2011 8:49 PM [facility] in [address] [address] Delgado Holly MD [address] [place] [address] Social History Tobacco Use Types Packs/Day Years [...] AM CDT Legal Sex Female 4:14 AM STUDENT AFFAIRS VICE PRESIDENT Gender Identity Female 07/15/2023 10:49 AM CDT [...] Out COVID-19 05/17/2021 05/17/2021 05/18/2021 2:11 AM STUDENT AFFAIRS VICE PRESIDENT documented as of this encounter Care Teams Creel Hand Relationship Specialty Start Date End Date Jessica Espinosa MD PCP - General 07/28/07 Lulu Lopez NP [facility] [place] [address] [place] [address] PCP - Obstetrics/Gynecology 02/05/07 Sean Ortega MD [facility] [place] [address] [place] [address] PCP - ENT 02/22/09 03/17/18 Myranda Adams MD [facility] [place] [address] [place] [address] PCP - Neurology 05/24/09 09/16/24 Ralph Oh MD RETIRED PCP - Orthopaedics Orthopedics 07/31/10 07/17/23 documented as of this encounter
--- OUTSIDE RECORDS SUMMARY | 2011-08-06 21:47 | XMS_ITS | Encounter Summary ---
Author Organization [place] Address [address] [place] [address] Care Team Providers Care Butcher Chicken And Fish Name Role Phone Jessica Espinosa MD Primary Care Provider [phone] Lulu Lopez NP Unavailable Sean Ortega MD Unavailable [phone] Myranda Adams MD Unavailable [phone] Ralph Oh MD Unavailable Unavailable Encounter Details Date Type Department Care Team (Late st Contact Info) Description 08/06/2011 9:47 PM CDT [facility] in [address] [address] Jarett Gonzalez MD [address] [place] [address] Social History Tobacco Use Types [...] CDT Legal Sex Female 4:14 AM SENIOR HR BUSINESS PARTNER Gender Identity Female 07/15/2023 10:49 AM CDT [...] COVID-19 05/17/2021 05/17/2021 05/18/2021 2:11 AM SENIOR HR BUSINESS PARTNER documented as of this encounter Care Teams Butcher Chicken And Fish Relationship Specialty Start Date End Date Jessica Espinosa MD PCP - General 07/28/07 Lulu Lopez NP [facility] [place] [address] [place] [address] PCP - Obstetrics/Gynecology 02/05/07 Sean Ortega MD [facility] [place] [address] [place] [address] PCP - ENT 02/22/09 03/17/18 Myranda Adams MD [facility] [place] [address] [place] [address] PCP - Neurology 05/24/09 09/16/24 Ralph Oh MD RETIRED PCP - Orthopaedics Orthopedics 07/31/10 07/17/23 documented as of this encounter
--- OUTSIDE RECORDS SUMMARY | 2011-09-03 21:10 | XMS_ITS | Encounter Summary ---
Author Organization [place] Address [address] [place] [address] Care Team Providers Care Proctologist Name Role Phone Jessica Espinosa MD Primary Care Provider [phone] Lulu Lopez NP Unavailable Sean Ortega MD Unavailable [phone] Myranda Adams MD Unavailable [phone] Ralph Oh MD Unavailable Unavailable Encounter Details Date Type Department Care Team (Late st Contact Info) Description 09/03/2011 9:10 PM CDT [facility] in [address] [address] Flavio Driver MD [address] [place] [address] Social History Tobacco Use Types [...] AM CDT Legal Sex Female 4:14 AM PLASTIC CUTTER Gender Identity Female 07/15/2023 10:49 AM [...] Out COVID-19 05/17/2021 05/17/2021 05/18/2021 2:11 AM PLASTIC CUTTER documented as of this encounter Care Teams Proctologist Relationship Specialty Start Date End Date Jessica Espinosa MD PCP - General 07/28/07 Lulu Lopez NP [facility] [place] [address] [place] [address] PCP - Obstetrics/Gynecology 02/05/07 Sean Ortega MD [facility] [place] [address] [place] [address] PCP - ENT 02/22/09 03/17/18 Myranda Adams MD [facility] [place] [address] [place] [address] PCP - Neurology 05/24/09 09/16/24 Ralph Oh MD RETIRED PCP - Orthopaedics Orthopedics 07/31/10 07/17/23 documented as of this encounter
--- OUTSIDE RECORDS SUMMARY | 2013-07-20 06:40 | XMS_ITS | Encounter Summary ---
Author Organization [facility] Address [address] [place] [id number] Care Team Providers Care Purification Operator Helper Name Role Phone Jesscia Espinosa MD Primary Care Provider [phone] Lulu Lopez NP Unavailable Sean Ortega MD Unavailable [phone] Myranda Adams MD Unavailable [phone] Ralph Oh MD Unavailable Unavailable Encounter Details Date Type Department Care Team (Late st Contact Info) Description 07/20/2013 6:40 AM CDT [facility] [address] [place] [id number] Kaye Reynolds, PAWarrenC [facility] [address] [place] [address] Social History Tobacco Use Types Packs/Day Years [...] AM CDT Legal Sex Female 4:14 AM OILER BANDER Gender Identity Female 07/15/2023 10:49 AM CDT [...] Out COVID-19 05/17/2021 05/17/2021 05/18/2021 2:11 AM OILER BANDER documented as of this encounter Care Teams Purification Operator Helper Relationship Specialty Start Date End Date Jessica Espinosa MD PCP - General 07/28/[address] [facility] [place] [address] [place] [address] PCP - Obstetrics/Gynecology 02/05/[address] [facility] [place] [address] [place] [address] PCP - ENT 02/22/09 03/17/[address] [facility] [place] [address] [place] [address] PCP - Neurology 05/24/09 09/16/24 Ralph Oh MD RETIRED PCP - Orthopaedics Orthopedics 07/31/10 07/17/23 documented as of this encounter
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
--- OUTSIDE RECORDS SUMMARY | 2024-10-11 11:00 | XMS_ITS | Encounter Summary ---
Author Organization [facility] Address [address] [place] [address] Care Team Providers Care Paper Goods Machine Operator Name Role Phone Mellisa Donaldson DO Primary Care Pr ovider Reason for Visit * Reason Comments Follow up * Other (Routine) - Authorized Specialty Diagnoses / Procedures Referred By Marry neumann Referred To Contact Diagnoses Intractable chronic migraine with aura with status migrainosus Procedures [facility] PROCEDURE APPOINTMENT INJECTION,ONABOTULINUMTOXINA Lobo Jose MD [address] [place] [address] [place] [address] Phone: tel: fax: Referral ID Status Reason Start Date Expiration Date V isits Requested Visits Authorized [id number] Authorized 07/23/2023 09/19/2025 10 10 Encounter Details Date Type Department Care Team (Late st Contact Info) Description 10/11/2024 11:00 AM CDT Office Visit [facility] [address] [place] [phone] Lobo Jose MD [address] [place] [address] [place] [address] Intractable chronic migraine without aura and without status migrainosus (Primary Dx) Social History Tobacco Use Types Packs/Day Years Used Date Smoking Tobacco: Never Smokeless Tobacco: Never PHQ-2 Answer Date Recorded PHQ2 Total 0 06/25/2023 Comments Unknown Sex and Gender Information Value Date Recorded Sex Assigned at Female 04/04/2024 4:41 PM COREMAKER EXPERIMENTAL Legal Sex Female 12:10 PM CDT Gender Identity Female 04/04/2024 4:41 PM COREMAKER EXPERIMENTAL Sexual Orientation Bisexual 04/04/2024 4: 41 PM COREMAKER EXPERIMENTAL documented as of this encounter Patient Instructions * Patient Instructions* Debi Castelan MA - 10/11/2024 11:00 AM CDT 1. Botox injections were performed today. Please avoid pressure on any of the injection sites for the rest of the day. 2. Please see Dr. Jose/Aleida Villeda back in follow-up in 1 month. 3. We may perform occipital nerve blocks at your next appointment. 4. Botox needs to be repeated every 12 weeks. documented in this encounter Progress Notes * Lobo Jose MD - 10/11/2024 11:00 AM CDT PROCEDURE NOTE: BOTULINUM TOXIN INJECTION Patient identification: Verified using date of and full name. Indication for use: Chronic Migraine Headaches, G43.719 Botox started: 2019 Date of last botulinum toxin injection (verified with patient): Jun 2024. The patient's symptoms have been refractory to multiple oral medications as mentioned in previous office notes. Please refer to past office visit notes for comprehensive details of headache frequency, intensity and duration; along with medications used prior to Botox injection protocol initiation. Consent: After confirming history of above headaches with the patient, details of the procedure were offered to the patient along with its alternatives and risks involved. A patient information sheetincluding written instructions for care and a listing of side effects and pertinent pharmacologicaldata was given to the patient. Goals of procedure: Reduce headache frequency and intensity. Patient expressed understanding of realistic expectations and targets. Botox was supplied by [facility] of neurology. Details of procedure: The patient was lying/ seated for different parts of the procedure. The muscles intended to be injected were charted, and the plan of injection sites was explained to the patient. Ice packs were offered to the patient for local application in an attempt to reduce pain. After preparing the skin withisopropyl alcohol, the percutaneous injections of botulinum toxin were administered. The following muscles/sites were injected with the corresponding doses: Bilateral Behavioral Intervention Specialist: [10] units divided in 2 sites. Procerus: [5] units in 1 site. Bilateral Frontalis: [20] units in 4 sites. Bilateral Temporalis: [40] units in 8 sites. Bilateral Occipitalis: [30] units divided in 6 sites. Bilateral Cervical paraspinals: [20] units divided in 4 sites. Bilateral Trapezius: [30] units divided in 6 sites. Total: [155] units divided in [31] sites. Total dose administered: 155 Units of botulinum toxin A. Total amount discarded due to unavoidable wastage: 45 Units of botulinum toxin A. Diluent used: Normal saline. Dilution ratio: [100 Units/2 mL]; i.e. [2: 1] dilution. Guidance used: Electromyographic guidance was not used for any of the sites. Post-procedure status: No immediate complications were noted and a total of less than 1-2 drops of blood loss was noted at the sites of injections. The patient stabilized immediately after the procedure but reported no new symptoms other than mild pain at the site of injections. The patient was observed for 10 minutes and discharged in stable condition. The patient expressed no further unaddressed questions/concerns about the procedure today. Follow-up: Patient asked to call in 2 days to report any concerns/complications. The patient will be following up in clinic in 3-4 weeks to assess progress. The patient has our contact information and has been advised to stay in touch with us regarding any other issues that may arise. documented in this encounter Plan of Treatment Not on file documented as of this encounter Visit Diagnoses Diagnosis Intractable chronic migraine without aura and without status migrainosus- Primary Chronic migraine without aura, with intractable migraine, so stated, without mention of status migrainosus documented in this encounter Administered Medications Inactive Administered Medications - up to 3 most recent administrations Medication Order MAR Action Action Date Dose Rate Site onabotulinumtoxinA (Botox) injection 100 Units 100 Units, IntraMUSCULAR, ONCE, 1 dose, On Thu10/11/24 at 1130Indications:Intracta ble chronic migraine without aura and without status migrainosus Given 10/11/2024 12:05 PM CDT 200 Units Other (Comment) documented in this encounter Care Teams Paper Goods Machine Operator Relationship Specialty Start Date End Date Anika Mellisacinthya Galvan DO [address] [address] PCP - General Family Medicine 04/16/23 documented as of this encounter
--- NOTE | 2024-10-27 15:00 | CRLHL7_ITS ---
For Patients: As a result of the Century Cures Act, medical imaging exams and procedure reports are released immediately into your electronic medical record. You may view this report before your referring provider. If you have questions, please contact your health care provider. INDICATION: Pelvic and perineal pain COMPARISON: None. TECHNIQUE: 2D henry-scale and color Doppler images were acquired of the pelvis using a transabdominal and transvaginal approach. Transvaginal imaging performed to better visualize the right ovary. FINDINGS: Status post hysterectomy and left oophorectomy. Cervical cuff appears unremarkable. The right ovary measures 2.7 x 2.2 x 2.1 cm. The right ovary demonstrates normal arterial and venous blood flow on color Doppler analysis. There are no suspicious fluid collections within the cul-de-sac. IMPRESSION: Normal right ovary. No suspicious findings status post hysterectomy and left oophorectomy. Dictated by Alfredito Guzman MD @ 10/28/2024 6:22:36 AM (Electronically Signed)
--- OUTSIDE RECORDS SUMMARY | 2024-10-28 01:04 | XMS_ITS | Encounter Summary ---
Author Organization [facility] Address [address] [place] [address] Care Team Providers Care Hospitality Coordinator Name Role Phone Jessica Espinosa MD Primary Care Provider [phone] Lulu Lopez NP Unavailable Sean Ortega MD Unavailable [phone] Myranda Adams MD Unavailable [phone] Ralph Oh MD Unavailable Unavailable Encounter Details Date Type Department Care Team (Late st Contact Info) Description 03/04/2011 MyC Medical Advice [facility] [place] [facility] [address] [place] [address] Delgado Perry MD XX NO INFO FOUND XX [place], [place] [id number] Social History Tobacco Use Types Packs/Day Years Used Date Smoking Tobacco: Former Cigarettes 0.5 16 0 05/12/1992 - 05/12/2008 Smokeless Tobacco: Former Comments:started age 11 Alcohol Use Standard Drinks/Week Comments Yes 0 (1 standard drink = 0.6 oz pure alcohol) occasional, none now due to diet plan Comments No Sex and Gender Information Value Date Recorded Sex Assigned at Female 07/15/2023 10:49 AM CDT Legal Sex Female 4:14 AM PUMP INSTALLATION AND SERVICER Gender Identity Female 07/15/2023 10:49 AM CDT [...] Out COVID-19 05/17/2021 05/17/2021 05/18/2021 2:11 AM PUMP INSTALLATION AND SERVICER documented as of this encounter Care Teams Hospitality Coordinator Relationship Specialty Start Date End Date Jessica Espinosa MD PCP - General 07/28/07 Lulu Lopez NP [facility] [place] [address] [place], [place] [id number] PCP - Obstetrics/Gynecology 02/05/07 Sean Ortega MD [facility] [place] [address] [place] [address] PCP - ENT 02/22/09 03/17/18 Myranda Adams MD [facility] [place] [address] [place] [address] PCP - Neurology 05/24/09 09/16/24 Ralph Oh MD RETIRED PCP - Orthopaedics Orthopedics 07/31/10 07/17/23 documented as of this encounter
--- OUTSIDE RECORDS SUMMARY | 2024-10-28 01:05 | XMS_ITS | Encounter Summary ---
Author Organization [facility] Address [address] [place] [address] Care Team Providers Care Visiting Professor Name Role Phone Jessica Molina MD Primary Care Provider [phone] Lulu Lopez NP Unavailable Sean Ortega MD Unavailable [phone] Myranda Adams MD Unavailable [phone] Ralph Oh MD Unavailable Unavailable Reason for Visit * Reason Onset Date Comments Refill Request 07/02/2011 Encounter Details Date Type Department Care Team (Late st Contact Info) Description 07/02/[address] [facility] [place] [facility] [address] [place] [address] Jessica Molina MD [address] [place], [place] [id number] Refill Request Social History Tobacco Use Types Packs/Day Years [...] AM CDT Legal Sex Female 4:14 AM NURSERY SCHOOL TEACHER Gender Identity Female 07/15/2023 10:49 AM CDT Sexual Orientation Bisexual 07/15/2023 10 :49 AM CDT Occupation Industry Job Start Date Job End Date homemaker Not on file Not on file Not on file Not on file Not on file Not on file Not on file documented as of this encounter Miscellaneous Notes * Telephone Encounter - Jenniffer Baker RN - 07/02/2011 3:37 PM NURSERY SCHOOL TEACHER Last visit: BP Readings from Last 1 Encounters: 06/26/11 112/72 Unable to approve medication per the RN refill protocol due to: - Medication not on refill protocol list Routing to PCP for review. ERY SCHOOL TEACHER * Telephone Encounter - Jenniffer Baker RN - 07/02/2011 3:37 PM NURSERY SCHOOL TEACHER Message from [facility]: Kalyani Burnett would like a refill of the following medications: fyfydldijf-nyuosmhugoenz-jytgrnwh (FIORICET) per tablet [Jessica Molina MD] Preferred pharmacy: [address] [facility] Comment: ERY SCHOOL TEACHER documented in this encounter Plan of Treatment Not on file documented as of this encounter Visit Diagnoses Diagnosis COMMON MIGRAINE W/O MENTN INTRACT Migraine without aura, without mention of intractable migraine without mention of status migrainosus documented in this encounter Additional Health Concerns Infection Onset Date Last Indicated Resolved Time Rule Out COVID-19 05/17/2021 05/17/2021 05/18/2021 2:11 AM NURSERY SCHOOL TEACHER documented as of this encounter Care Teams Visiting Professor Relationship Specialty Start Date End Date Jessica Molina MD PCP - General 07/28/07 Lulu Lopez NP [facility] [place] [facility] [address] [place] [address] PCP - Obstetrics/Gynecology 02/05/07 Sean Ortega MD [facility] [place] [address] [place] [address] PCP - ENT 02/22/09 03/17/18 Myranda Adams MD [facility] [place] [address] [place] [address] PCP - Neurology 05/24/09 09/16/24 Ralph Oh MD RETIRED PCP - Orthopaedics Orthopedics 07/31/10 07/17/23 documented as of this encounter
--- OUTSIDE RECORDS SUMMARY | 2024-10-28 01:05 | XMS_ITS | Encounter Summary ---
Author Organization [facility] Address [address] [place] [address] Care Team Providers Care Sas Architect Name Role Phone Jessica Espinosa MD Primary Care Provider [phone] Lulu Lopez NP Unavailable Sean Ortega MD Unavailable [phone] Myranda Adams MD Unavailable [phone] Ralph Oh MD Unavailable Unavailable Encounter Details Date Type Department Care Team (Late st Contact Info) Description 06/25/2009 MyC Medical Advice [facility] [place] GRAPHIC DESIGN ASSISTANT [address] [place] [address] [facility] [place] [address] [facility] [address] [place] [address] Social History Tobacco Use Types Packs/Day Years Used Date Smoking Tobacco: Former Cigarettes 0.5 16 0 05/12/1992 - 05/12/2008 Comments:started age 11 Alcohol Use Standard Drinks/Week Comments Yes 0 (1 standard drink = 0.6 oz pure alcohol) occasional, none now due to diet plan Comments No Sex and Gender Information Value Date Recorded Sex Assigned at Female 07/15/2023 10:49 AM CDT Legal Sex Female 4:14 AM JAVA PROJECT MANAGER Gender Identity Female 07/15/2023 10:49 [...] Out COVID-19 05/17/2021 05/17/2021 05/18/2021 2:11 AM JAVA PROJECT MANAGER documented as of this encounter Care Teams Sas Architect Relationship Specialty Start Date End Date Jessica Espinosa MD PCP - General 07/28/[address] [facility] [place] [address] [place], [place] [id number] PCP - Obstetrics/Gynecology 02/05/[address] [facility] [place] [address] [place] [address] PCP - ENT 02/22/09 03/17/[address] [facility] [place] [address] [place] [address] PCP - Neurology 05/24/09 09/16/24 Ralph Oh MD RETIRED PCP - Orthopaedics Orthopedics 07/31/10 07/17/23 documented as of this encounter
--- OUTSIDE RECORDS SUMMARY | 2024-10-28 01:05 | XMS_ITS | Encounter Summary ---
Author Organization [facility] Address [address] [place] [address] Care Team Providers Care Scientist/Engineer Name Role Phone Jessica Espinosa MD Primary Care Provider Lulu Lopez NP Unavailable Sean Ortega MD Unavailable [phone] Myranda Adams MD Unavailable [phone] Ralph Oh MD Unavailable Unavailable Encounter Details Date Type Department Care Team (Late st Contact Info) Description 03/13/2011 MyC Medical Advice [facility] [place] [facility] [address] [place] [address] Ralph Oh MD RETIRED Social History [...] AM CDT Legal Sex Female 4:14 AM FACTORY LAY OUT ENGINEER Gender Identity Female 07/15/2023 10:49 AM CDT Sexual Orientation Bisexual 07/15/2023 10 :49 AM CDT Occupation Industry Job Start Date Job End Date homemaker Not on file Not on file Not on file documented as of this encounter Miscellaneous Notes * Telephone Encounter - Ralph Oh MD - 03/17/2011 3:41 PM CST Please arrange for her to have a 2nd opinion at the [facility] - shoulder specialist. RR ORY LAY OUT ENGINEER documented in this encounter Plan of Treatment Not on file documented as of this encounter Visit Diagnoses Not on filedocumented in this encounter Additional Health Concerns Infection Onset Date Last Indicated Resolved Time Rule Out COVID-19 05/17/2021 05/17/2021 05/18/2021 2:11 AM FACTORY LAY OUT ENGINEER documented as of this encounter Care Teams Scientist/Engineer Relationship Specialty Start Date End Date Jessica Espinosa MD PCP - General 07/28/07 Lulu Lopez TUFTING MACHINE OPERATOR [facility] [place] [address] [place] [address] PCP - Obstetrics/Gynecology 02/05/07 Sean Ortega MD [facility] [place] [address] [place] [address] PCP - ENT 02/22/09 03/17/18 Myranda Adams MD [facility] [place] [address] [place] [address] PCP - Neurology 05/24/09 09/16/24 Ralph Oh MD RETIRED PCP - Orthopaedics Orthopedics 07/31/10 07/17/23 documented as of this encounter
--- OUTSIDE RECORDS SUMMARY | 2024-10-28 01:05 | XMS_ITS | Encounter Summary ---
Author Organization [facility] Address [address] [place] [address] Care Team Providers Care Echocardiographer Name Role Phone Jessica Espinosa MD Primary Care Provider [phone] Lulu Lopez RESEARCH PHYSIOLOGIST Unavailable Myranda Adams MD Unavailable [phone] Encounter Details Date Type Department Care Team (Latest Contact Info) Description 09/15/2024 Travel Social History Tobacco Use Types Packs/Day Years [...] AM CDT Legal Sex Female 4:14 AM COLORING ROOM WORKER Gender Identity Female 07/15/2023 10:49 AM [...] Diagnoses Not on filedocumented in this encounter Care Teams Echocardiographer Relationship Specialty Start Date End Date Jessica Espinosa MD PCP - General 07/28/07 Lulu Lopez NP [facility] [place] [address] [place] [address] PCP - Obstetrics/Gynecology 02/05/07 Myranda Adams MD [facility] [place] [address] [place] [address] PCP - Neurology 05/24/09 09/16/24 documented as of this encounter
--- OUTSIDE RECORDS SUMMARY | 2024-10-28 01:05 | XMS_ITS | Encounter Summary ---
Author Organization [facility] Address [address] [place] [address] Care Team Providers Care Pile Driver Name Role Phone Jessica Espinosa MD Primary Care Provider [phone] Lulu Lopez NP Unavailable Sean Ortega MD Unavailable [phone] Myranda Adams MD Unavailable [phone] Ralph Oh MD Unavailable Unavailable Encounter Details Date Type Department Care Team (Late st Contact Info) Description 05/18/2013 MyC Medical Advice [facility] [place] Orth[facility] [address] [place] [address] Ralph Oh MD RETIRED Social History [...] AM CDT Legal Sex Female 4:14 AM CHIEF ARCHITECT Gender Identity Female 07/15/2023 10:49 AM CDT [...] Out COVID-19 05/17/2021 05/17/2021 05/18/2021 2:11 AM CHIEF ARCHITECT documented as of this encounter Care Teams Pile Driver Relationship Specialty Start Date End Date Jessica Espinosa MD PCP - General 07/28/07 Lulu Lopez, SUPERVISOR SPECIAL SERVICES [facility] [place] [address] [place], [place] [phone] PCP - Obstetrics/Gynecology 02/05/07 Sean Ortega MD [facility] [place] [address] [place] [address] PCP - ENT 02/22/09 03/17/18 Myranda Adams MD [facility] [place] [address] [place] [address] PCP - Neurology 05/24/09 09/16/24 Ralph Oh MD RETIRED PCP - Orthopaedics Orthopedics 07/31/10 07/17/23 documented as of this encounter
--- OUTSIDE RECORDS SUMMARY | 2024-10-28 01:05 | XMS_ITS | Encounter Summary ---
Author Organization [place] Address [address] [place] [address] Care Team Providers Care Educator Senior Clinical Name Role Phone Jessica Espinosa MD Primary Care Provider [phone] Lulu Lopez NP Unavailable Sean Ortega MD Unavailable [phone] Myranda Adams MD Unavailable [phone] Ralph Oh MD Unavailable Unavailable Encounter Details Date Type Department Care Team (Late st Contact Info) Description 03/28/2011 MyC Medical Advice [facility] [place] [facility] [address] [place] [address] Ralph Oh MD RETIRED Social [...] AM CDT Legal Sex Female 4:14 AM DIGITAL OPERATIONS ANALYST Gender Identity Female 07/15/2023 10:49 AM [...] Out COVID-19 05/17/2021 05/17/2021 05/18/2021 2:11 AM DIGITAL OPERATIONS ANALYST documented as of this encounter Care Teams Educator Senior Clinical Relationship Specialty Start Date End Date Jessica Espinosa MD PCP - General 07/28/07 Lulu Lopez, HEALTHCARE EDUCATOR [facility] [place] [address] [place] [address] PCP - Obstetrics/Gynecology 02/05/07 Sean Ortega MD [facility] [place] [address] [place] [address] PCP - ENT 02/22/09 03/17/18 Myranda Adams MD [facility] [place] [address] [place] [address] PCP - Neurology 05/24/09 09/16/24 Ralph Oh MD RETIRED PCP - Orthopaedics Orthopedics 07/31/10 07/17/23 documented as of this encounter
--- OUTSIDE RECORDS SUMMARY | 2024-10-28 01:05 | XMS_ITS | Encounter Summary ---
Author Organization [place] Address [facility] [place] [address] Care Team Providers Care Snow Fence Erector Name Role Phone Jessica Espinosa MD Primary Care Provider [phone] Lulu Lopez RN MEDICATION Unavailable Myranda Adams MD Unavailable [phone] Ralph Oh MD Unavailable Unavailable Encounter Details Date Type Department Care Team (Late st Contact Info) Description 07/06/2023 Orders Only M [facility] [address] [place] [address] Lobo Jose MD [address] [place] [address] [address] [place] [address] Intractable chronic migraine with aura with status migrainosus Social History Tobacco Use Types Packs/Day Years [...] AM CDT Legal Sex Female 4:14 AM UPHOLSTERER INSIDE Gender Identity Female 07/15/2023 10:49 AM CDT Sexual Orientation Bisexual 07/15/2023 10 :49 AM CDT Occupation Industry Job Start Date Job End Date homemaker Not on file Not on file Not on file Not on file Not on file Not on file Not on file documented as of this encounter Plan of Treatment Not on file documented as of this encounter Results * LYME CONFIRM IGG/IGM BY CHEMILUMINESCENT IA BLOOD (07/16/2023 11:20 AM CDT) Lyme Confirm IgG by CLIA Instrument Value 0.31 <0.90 Index 07/17/2023 9:32 AM CDT SPECIALTY CORE/PROT/EN DO Lyme Confirm IgG by CLIA Blood Nonreactive Nonreactive 07/17/2023 9:32 AM CDT SPECIALTY CORE/PROT/EN DO Comment:Absence of detectabl e anti-Borrelia burgdorferi IgG antibodies. A non-reactive result does not exclude the possibility of Borrelia burgdorferi infection. If exposure to B. burgdorferi is suspected, a second sample should be collected and tested two to four weeks later. Lyme Confirm IgM by CLIA Instrument Value 0.32 <0.90 Index 07/17/2023 9:32 AM CDT SPECIALTY CORE/PROT/EN DO Lyme Confirm IgM by CLIA Blood Nonreactive Nonreactive 07/17/2023 9:32 AM CDT SPECIALTY CORE/PROT/EN DO Comment:Absence of detectabl e anti-Borrelia burgdorferi IgM antibodies. A non-reactive result does not exclude the possibility of Borrelia burgdorferi infection. If early Lyme disease is suspected, a second sample should be collected and tested two to four weeks later. Blood STRUCTURE OF RIGHT UPPER LIMB / Unknown Venipuncture / Unknown 07/16/2023 11:20 AM CDT 07/16/2023 11:26 AM CDT Narrative SPECIALTY CORE/PROT/ENDO - 07/17/2023 9:32 AM CDT Assay Results should be utilized in conjunction with other clinical and laboratory data to assist the clinician in making individual patient management decisions. Lobo Jose MD LAB - BLOOD ORDERABLES Final R esult [facility] SPECIALTY CORE/PROT/ENDO [facility] Specialty Core/Prot/Endo [address], Room [address] * Protein total CSF: (07/16/2023 10:34 AM CDT) Protein total CSF 39.5 15.0 - 45.0 mg/dL 07/16/2023 12:23 PM CDT LABORATORY Cerebrospinal fluid CEREBROSPINAL FLUID / Unknown Non-blood Collection / Unknown 07/16/2023 10:34 AM CDT 07/16/2023 11:09 AM CDT Lobo Jose MD LAB - CSF ORDERABLES Final Res ult LABORATORY [facility] [address] 1[address] floor, [address] [place] [address], [facility] * Glucose CSF: (07/16/2023 10:34 AM CDT) Glucose CSF 61 40 - 70 mg/dL 07/16/2023 12:23 PM CDT LABORATORY Cerebrospinal fluid CEREBROSPINAL FLUID / Unknown Non-blood Collection / Unknown 07/16/2023 10:34 AM CDT 07/16/2023 11:09 AM CDT Narrative LABORATORY - 07/16/2023 12:23 PM CDT CSF glucose concentrations are about 60 percent of normal plasma glucose. Lobo Jose MD LAB - CSF ORDERABLES Final Res ult LABORATORY [facility] [address] floor, [place] [address], [place] [address], [facility] * Myelin basic protein CSF: (07/16/2023 10:34 AM CDT) Myelin Basic Protein 2.68 0.00 - 5.50 ng/mL 07/19/2023 8:29 PM CDT [facility] Comment: INTERPRETIVE INFORMATION: Myelin Basic Protein This test was developed and its performance characteristics determined by [facility]. It has not been cleared or approved by the US Food and Drug Administration. This test was performed in a CLIA certified laboratory and is intended for clinical purposes. Performed By: [facility] [address] [place] [address] Thread Weaver: Joao Munoz MD, PhD CLIA Number: [id number] Cerebrospinal fluid CEREBROSPINAL FLUID / Unknown Non-blood Collection / Unknown 07/16/2023 10:34 AM CDT 07/16/2023 11:09 AM CDT Lobo Jose MD LAB - CSF ORDERABLES Final Res ult [facility] [employer] [address] [place] [address], [facility] [phone] * Cytology, non-gynecologic (07/16/2023 10:34 AM CDT) Final Diagnosis Specimen A Interpretation: Negative for malignancy Adequacy: Satisfactory for evaluation 07/17/2023 2:34 PM CDT LABORATORY at 1434 CDT Clinical Information chronic migrane with aura 07/17/2023 2:34 PM CDT SPECIAL[facility] LAB[facility] Gross Description A(A). Lumbar Puncture, :A. Lumbar Puncture, , CSF: Received 1 ml of clear, colorless fluid, processed as 1 Pap stained cytospin and 1 Rehman stained cytospin. 07/17/2023 2:34 PM CDT [facility] LAB[facility] Microscopic Description Microscopic examination was performed. 07/17/2023 2:34 PM CDT LABORATORY Performing Labs The technical component of this testing was completed at [facility] 07/17/2023 2:34 PM CDT [facility] Cerebrospinal fluid CEREBROSPINAL FLUID / Unknown Non-blood Collection / Unknown 07/16/2023 10:34 AM CDT 07/17/2023 7:20 AM CDT Lobo Jose MD LAB - BEAKER AP Final Result LABORATORY [facility] [address] [facility] Lab (1st floor, no room number) [place] [address], [facility] Specialty Lab [address] [facility] Building, [address] [place] [address], [facility] documented in this encounter Visit Diagnoses Diagnosis Intractable chronic migraine with aura with status migrainosus documented in this encounter Care Teams Snow Fence Erector Relationship Specialty Start Date End Date Jessica Espinosa MD PCP - General 07/28/07 Lulu Lopez RN MEDICATION [facility] [place] [address] [place], [place] [id number] PCP - Obstetrics/Gynecology 02/05/07 Myranda Adams MD [facility] [place] [address] [place] [address] PCP - Neurology 05/24/09 09/16/24 Ralph Oh MD RETIRED PCP - Orthopaedics Orthopedics 07/31/10 07/17/23 documented as of this encounter
--- OUTSIDE RECORDS SUMMARY | 2024-10-28 01:06 | XMS_ITS | Encounter Summary ---
Author Organization [place] Address [address] [place] [address] Care Team Providers Care Dental Surgeon Name Role Phone Jessica Espinosa MD Primary Care Provider Lulu Lopez NP Unavailable Sean Ortega MD Unavailable [phone] Myranda Adams MD Unavailable [phone] Ralph Oh MD Unavailable Unavailable Encounter Details Date Type Department Care Team (Late st Contact Info) Description 07/17/2008 MyC Medical Advice [facility] in [place] HEALTH INSPECTOR FOOD [address] [place] [address] Lulu Lopez NP [facility] [place] [address] [facility] [address] [place] [address] Social History Tobacco Use Types Packs/Day Years Used Date Smoking Tobacco: Former Cigarettes 0.5 16 0 05/12/1992 - 05/12/2008 Comments:started age 11 Alcohol Use Standard Drinks/Week Comments Yes 0 (1 standard drink = 0.6 oz pur e alcohol) occasional Comments No Sex and Gender Information Value Date Recorded Sex Assigned at Female 07/15/2023 10:49 AM CDT Legal Sex 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 Gender Identity Female 07/15/2023 10:49 AM [...] Out COVID-19 05/17/2021 05/17/2021 05/18/2021 2:11 AM SCALPER OPERATOR documented as of this encounter Care Teams Dental Surgeon Relationship Specialty Start Date End Date Jessica Espinosa MD PCP - General 07/28/07 Lulu Lopez, FINANCIAL MANAGER [facility] [place] [address] [place] [address] PCP - Obstetrics/Gynecology 02/05/07 Sean Ortega MD [facility] [place] [address] [place] [address] PCP - ENT 02/22/09 03/17/18 Myranda Adams MD [facility] [place] [address] [place] [address] PCP - Neurology 05/24/09 09/16/24 Ralph Oh MD RETIRED PCP - Orthopaedics Orthopedics 07/31/10 07/17/23 documented as of this encounter
--- OUTSIDE RECORDS SUMMARY | 2024-10-28 01:06 | XMS_ITS | Encounter Summary ---
Author Organization [place] Address [address] [place] [address] Care Team Providers Care Delivery Driver Assistant Name Role Phone Jessica Molina MD Primary Care Provider Lulu Lopez NP Unavailable Sean Ortega MD Unavailable [phone] Myranda Adams MD Unavailable [phone] Ralph Oh MD Unavailable Unavailable Reason for Visit * Reason Onset Date Comments Refill Request 01/03/2011 fioricet/ zofran Encounter Details Date Type Department Care Team (Late st Contact Info) Description 01/03/2011 MyC Refill [facility] in [place] [facility] [address] [place] [id number] Reported, Patient Refill Request (fioricet/ zofran) Social History Tobacco Use Types Packs/Day Years [...] AM CDT Legal Sex Female 4:14 AM 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 * Telephone Encounter - Doris Ingram - 01/03/2011 10:51 AM CDT Last visit:Urgent care visit for MIGRAINE - Demerol and Zofran given BP Readings from Last 1 Encounters: 01/02/11 130/70 Routing to team provider for review in PCP's absence. Unable to approve medication per the RN refill protocol due to: - Medication not on refill protocol list PHQ-9 (scale: 0 to 3) 10/24/2009 No interest in doing things 1 Feeling Depressed 0 Trouble sleeping 1 Tired / No energy 1 No appetite or over-eating 1 Feeling bad about self 0 Trouble concentrating 3 Moving slow or restless 1 Suicidal thoughts 0 TOTAL SCORE-----> 8 * Telephone Encounter - Doris Ingram - 01/03/2011 10:50 AM CDTMessage from [facility]: Kalyani Burnett would like a refill of the following medications: ondansetron (ZOFRAN) 8 MG tablet [Patient Reported] hxeugonpbf-rtjarexephfie-fvadzkvy (FIORICET) per tablet [Jessica Molina] alprazolam (XANAX) 0.25 MG tablet [Jessica Molina] Preferred pharmacy: [address] [facility]RIANNA CREWS Comment: documented in this encounter Plan of Treatment Not on file documented as of this encounter Visit Diagnoses Diagnosis COMMON MIGRAINE W/O MENTN INTRACT Migraine without aura, without mention of intractable migraine without mention of status migrainosus documented in this encounter Additional Health Concerns Infection Onset Date Last Indicated Resolved Time Rule Out COVID-19 05/17/2021 05/17/2021 05/18/2021 2:11 AM 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 ASSISTANT MANAGER documented as of this encounter Care Teams Delivery Driver Assistant Relationship Specialty Start Date End Date Jessica Molina MD PCP - General 07/28/07 Lulu Lopez PARKING ASSISTANT [facility] [place] [address] [place], [place] [phone] PCP - Obstetrics/Gynecology 02/05/07 Sean Ortega MD [facility] [place] [address] [place], [place] [phone] PCP - ENT 02/22/09 03/17/18 Myranda Adams MD [facility] [place] [address] [place] [address] PCP - Neurology 05/24/09 09/16/24 Ralph Oh MD RETIRED PCP - Orthopaedics Orthopedics 07/31/10 07/17/23 documented as of this encounter
--- OUTSIDE RECORDS SUMMARY | 2024-10-28 01:06 | XMS_ITS | Encounter Summary ---
Author Organization [place] Address [address] [place] [address] Care Team Providers Care Motor Equipment Lieutenant Name Role Phone Jessica Espinosa MD Primary Care Provider [phone] Lulu Lopez NP Unavailable Sean Ortega MD Unavailable [phone] Myranda Adams MD Unavailable [phone] Ralph Oh MD Unavailable Unavailable Encounter Details Date Type Department Care Team (Late st Contact Info) Description 09/04/2010 MyC Medical Advice [facility] [place] [facility] [address] [place] [address] Dina Sue, [facility] [address] [address] Social History Tobacco Use Types Packs/Day Years [...] AM CDT Legal Sex Female 4:14 AM FLOOR HAND Gender Identity Female 07/15/2023 10:49 AM CDT [...] Out COVID-19 05/17/2021 05/17/2021 05/18/2021 2:11 AM FLOOR HAND documented as of this encounter Care Teams Motor Equipment Lieutenant Relationship Specialty Start Date End Date Jessica Espinosa MD PCP - General 07/28/07 Lulu Lopez NP [facility] [place] [address] [place] [address] PCP - Obstetrics/Gynecology 02/05/07 Sean Ortega MD [facility] [place] [address] [place] [address] PCP - ENT 02/22/09 03/17/18 Myranda Adams MD [facility] [place] [address] [place] [address] PCP - Neurology 05/24/09 09/16/24 Ralph Oh MD RETIRED PCP - Orthopaedics Orthopedics 07/31/10 07/17/23 documented as of this encounter
--- OUTSIDE RECORDS SUMMARY | 2024-10-28 01:06 | XMS_ITS | Data Portability ---
Author Organization [employer] [facility] Address [address] [place] [phone] Assessment No assessment recorded. Plan of Treatment Reminders Order Date Submit Date Provider Last Modified By Organization Details Last Modified Time Details Appointments None recorded. Lab biopsy, tissue - surface piercings (2) lumbar region 2024 025 [email or web address] [facility], [address] [place], [address], 5 22:38:20 biopsy, tissue 2024 025 [email or web address] [facility], [address] [place], [address], 5 17:45:15 lipid panel, serum 2024 025 [email or web address] [facility], [address] [place], [address], 5 17:39:24 BMP, blood [address], [address] [place] [address], [address], 5 17:18:16 HbA1c (hemoglobin A1c), blood [address], [address] [place] [address], [address], 5 17:18:16 CBC w/ auto diff 2024 025 [email or web address] [facility], [address] [place], [address], 5 17:35:43 lipid panel, blood [email or web address] [place] [address], [address] [place] [address], [address], 5 17:18:16 glucose, QN [mass/volum e], serum or plasma 2024 025 [email or web address] [facility], [address] [place], [address], 5 17:39:08 Referral None recorded. Procedures None recorded. Surgeries None recorded. Imaging None recorded. Medication Orders omeprazole 20 mg capsule,del ayed release 2024 025 [facility], [address] [place] [address], [address], 5 16:07:33 Vyepti 100 mg/mL intravenous solution 2024 025 [email or web address] Not available 5 17:18:15 Nurtec ODT 75 mg disintegrat ing tablet 2024 025 [email or web address] Not available 5 17:18:15 epinephrine 0.3 mg/0.3 mL injection, auto-inject or 2024 025 [facility], [address] [place] [address], [address], 5 17:25:50 Patient TargetsNo targets recorded. Patient Instructions Encounter Date Encounter Id Patient Instructions Last Modified By Organization Details Last Modified Time 06/08/2024 [id number] suture removal 7-10 days with nurse [email or web address] Not available 06/08/2024 15:56:53 Reason for Referral None Reported. Results Created Date Observation Date Name Description Value Unit Range Abnormal Flag Note LastModifiedBy Organization Detail LastModifiedTime 05/24/1905/25/2024 LIPID PANEL , STAND JOESPH cholesterol, total 223 mg/dL <200 high Not Available [facility] [place] [facility] [address] [facility], [place], [address], 2024 12:35:41 05/24/1905/25/2024 LIPID PANEL , STAND JOESPH HDL cholesterol 46 mg/dL > or = 50 low Not Available [facility] [place] [facility] [address] [facility], [place], [address], 2024 12:35:41 05/24/19 25 2024 LIPID PANEL , STAND JOESPH triglyceride s 135 mg/dL <150 normal Not Available [facility] [place] [facility] [address] [facility], [place], [address], 2024 12:35:41 05/24/19 25 2024 LIPID PANEL , STAND JOESPH LDL-choleste rol 151 mg/dL _(karen c) high Refer ence range : <100 Janet able range <100 mg/dL for prima ry preve ntion ; <70 mg/dL for patie nts with CHD or diabe tic patie nts with > or = 2 CHD risk facto rs. LDL-C is now calcu lated using the Isha n-Hop kins lalyu edy n, which is a valid ated novel alberto d anabell oviedo r accur acy than the Fried edison equat ion in the estim ation of LDL-C . Isha locke SS et al. DEYANIRA. 2013; 310(1 9): 2061- 2068 (http ://ed geminiati on.Qu Mireya greers. com/f aq/FA Q164) Not Available [facility] [place] [facility] [address] [facility], [place], [address], 2024 12:35:41 05/24/19 25 2024 LIPID PANEL , STAND JOESPH chol/HDLC ratio 4.8 (calc ) <5.0 normal Not Available [facility] [place] [facility] [address] [facility], [place], [address], 2024 12:35:41 05/24/19 25 2024 LIPID PANEL , STAND JOESPH non HDL cholesterol 177 mg/dL _(karen c) <130 high For patie nts with diabe kamron plus 1 major ASCVD risk facto r, treat ing to a non-H DL-C goal of <100 mg/dL (LDL- C of <70 mg/dL ) is consi dered a thera peisabellai c optio n. Not Available [facility] [place] [facility] [address] [facility], [place], [address], 2024 12:35:41 05/24/19 25 2024 GLUCO SE glucose 90 mg/dL 65-99 normal Fasti ng refer ence inter yeimi Not Available [facility] [place] [facility] [address] [place], [address], 2024 12:35:43 05/24/19 25 2024 CBC (INCL UDES DIFF/ PLT) white blood cell count 9.3 thous and/u L 3.8-10 .8 normal Not Available [facility] [place] [facility] [address] [facility] [place], [address], 2024 12:35:44 05/24/19 25 2024 CBC (INCL UDES DIFF/ PLT) red blood cell count 4.73 adama on/uL 3.80-5 .10 normal Not Available [facility] [place] [facility] [address] [facility] [place] [place], [address], 2024 12:35:44 05/24/19 25 2024 CBC (INCL UDES DIFF/ PLT) hemoglobin 15.4 g/dL 11.7-1 5.5 normal Not Available [facility] [place] [facility] [address] [place], [address], 2024 12:35:44 05/24/19 25 2024 CBC (INCL UDES DIFF/ PLT) hematocrit 45.1 % 35.0-4 5.0 high Not Available [facility] [place] [facility] [address] [place], [address], 2024 12:35:44 05/24/19 25 2024 CBC (INCL UDES DIFF/ PLT) MCV 95.3 fL 80.0-1 00.0 normal Not Available [facility] [place] [facility] [address] [place], [address], 2024 12:35:44 05/24/19 25 2024 CBC (INCL UDES DIFF/ PLT) MCH 32.6 pg 27.0-3 3.0 normal Not Available [facility] [place] [facility] [address] [place], [address], 2024 12:35:44 05/24/19 25 2024 CBC (INCL UDES DIFF/ PLT) MCHC 34.1 g/dL 32.0-3 6.0 normal For adult s, a sligh t decre ase in the calcu lated MCHC value (in the range of 30 to 32 g/dL) is most likel y not clini vitor signi fickeshia t; saul er, it shoul d be inter prete d with cauti on in corre latio n with other red cell kaylin eters and the patie nt's clini karen condi tion. Not Available [facility] [place] [facility] [address] [place], [address], 2024 12:35:44 05/24/19 25 2024 CBC (INCL UDES DIFF/ PLT) RDW 12.5 % 11.0-1 5.0 normal Not Available [facility] [address], [place], [address], 2024 12:35:44 05/24/19 25 2024 CBC (INCL UDES DIFF/ PLT) platelet count 423 thous and/u L 140-40 0 high Not Available [facility], [place], [address], 2024 12:35:44 05/24/19 25 2024 CBC (INCL UDES DIFF/ PLT) MPV 10.9 fL 7.5-12 .5 normal Not Available [facility] [address], [place], [address], 2024 12:35:44 05/24/19 25 2024 CBC (INCL UDES DIFF/ PLT) absolute neutrophils 6343 cells /uL 1500-7 800 normal Not Available [facility] [address], [place], [address], 2024 12:35:44 05/24/19 25 2024 CBC (INCL UDES DIFF/ PLT) absolute lymphocytes 2148 cells /uL 850-39 00 normal Not Available [facility] [address] [place], [place] [address], [place], [address], 2024 12:35:44 05/24/19 25 2024 CBC (INCL UDES DIFF/ PLT) absolute monocytes 521 cells /uL 200-95 0 normal Not Available [facility] [place] [facility] [address], [place], [address], 2024 12:35:44 05/24/19 25 2024 CBC (INCL UDES DIFF/ PLT) absolute eosinophils 242 cells /uL 15-500 normal Not Available [facility] [address], [place], [address], 2024 12:35:44 05/24/19 25 2024 CBC (INCL UDES DIFF/ PLT) absolute basophils 47 cells /uL 0-200 normal Not Available [facility] [place] [facility] [address] [facility], [place], [address], 2024 12:35:44 05/24/19 25 2024 CBC (INCL UDES DIFF/ PLT) neutrophils 68.2 % normal Not Available [facility] [place] [facility] [address] [facility], [place], [address], 2024 12:35:44 05/24/19 25 2024 CBC (INCL UDES DIFF/ PLT) lymphocytes 23.1 % normal Not Available [facility] [place] [facility] [address] [facility], [place], [address], 2024 12:35:44 05/24/19 25 2024 CBC (INCL UDES DIFF/ PLT) monocytes 5.6 % normal Not Available [facility] [place] [facility] [address] [facility], [place], [address], 2024 12:35:44 05/24/19 25 2024 CBC (INCL UDES DIFF/ PLT) eosinophils 2.6 % normal Not Available [facility] [place] [facility] [address] [facility], [place], [address], 2024 12:35:44 05/24/19 25 2024 CBC (INCL UDES DIFF/ PLT) basophils 0.5 % normal Not Available [facility] [place] [facility] [address] [facility], [place], [address], 2024 12:35:44 05/24/19 25 05/24/2024 BMP, blood glucose 102 70 - 99 mg/dL Not Available [facility] [address], [address], 05/24/2024 16:31:23 05/24/19 25 05/24/2024 BMP, blood BUN 9 7 - 24 mg/dL Not Available [address], [address], 05/24/2024 16:31:23 05/24/19 25 05/24/2024 BMP, blood calcium 9.4 8.5 - 10.5 mg/dL Not Available [address], [address], 05/24/2024 16:31:23 05/24/19 25 05/24/2024 BMP, blood creatinine 0.8 0.6 - 1.3 mg/dL Not Available [address] [place], [address], 05/24/2024 16:31:23 05/24/19 25 05/24/2024 BMP, blood sodium 139 135 - 145 mEq/L Not Available [address], [address], 05/24/2024 16:31:23 05/24/19 25 05/24/2024 BMP, blood potassium 4.6 3.5 - 5.3 mEq/L Not Available [address], [address], 05/24/2024 16:31:23 05/24/19 25 05/24/2024 BMP, blood chloride 110 95 - 105 mEq/L Not Available [address] [place], [address], 05/24/2024 16:31:23 05/24/19 25 05/24/2024 BMP, blood carbon dioxide 26 23 - 29 mEq/L Not Available [address] [place], [address], 05/24/2024 16:31:23 05/24/19 25 05/24/2024 BMP, blood BUN/creatini ne ratio 10:1 - 20:1 Not Available [address], [place], [address], 05/24/2024 16:31:23 05/24/19 25 05/24/2024 lipid panel , blood cholesterol 202 <200 mg/dL Not Available [address], [place], [address], 05/24/2024 16:31:23 05/24/19 25 05/24/2024 lipid panel , blood HDL 38 50 mg/dL or higher Not Available [address] [place], [address], 05/24/2024 16:31:23 05/24/19 25 05/24/2024 lipid panel , blood triglyceride s 118 <150 md/dL Not Available [address], [place], [address], 05/24/2024 16:31:23 05/24/19 25 05/24/2024 lipid panel , blood nhdlc <130 md/dL Not Available [address] [place], [address], 05/24/2024 16:31:23 05/24/19 25 05/24/2024 lipid panel , blood TC/H 5.3 2.8 -6.6 Not Available [address] [place], [address], 05/24/2024 16:31:23 05/24/19 25 05/24/2024 lipid panel , blood LDL 141 100 or lower Not Available [address] [place], [address], 05/24/2024 16:31:23 05/24/19 25 05/24/2024 lipid panel , blood VLDL 2 - 30 mg/dL Not Available [address], [address], 05/24/2024 16:31:23 05/24/19 25 05/24/2024 HbA1c (hemo globi n A1c), blood hemoglobin A1C 5.2 4 - 7% Not Available [address], [place], [address], 05/24/2024 16:31:23 06/08/19 25 06/10/2024 TISSU E PATHO LOGY clinical information Skin papul e, thick ens and subsi venkatesh, prese nt 18 month s Not Available [facility] [place] [facility] [address] [place], [address], 06/10/2024 19:25:39 06/08/19 25 06/10/2024 TISSU E PATHO LOGY pathologist German ann M.D., Board Certi sohan in Anato en Patho logy, Clini karen Patho logy, Speci ariana guzman in Gynec ologi karen Patho logy (elec troni c signa ture) Not Available [facility] [place] [facility] [address] [place], [address], 06/10/2024 19:25:39 06/08/19 25 06/10/2024 TISSU E PATHO LOGY A source Skin, dorsu m left wrist , punch biops y Not Available [facility] [place] [facility] [address] [place], [address], 06/10/2024 19:25:39 06/08/19 25 06/10/2024 TISSU E PATHO LOGY A gross description Speci men is recei gordy in 10% neutr al buffe red forma mary, label ed with multi ple patie nt ident ifier s and consi sts of one piece from a skin punch biops y measu ring 0.4 x 0.4 x 0.1 cm, circu lar in shape and wharton-g ray in color , with a pigme nted area measu ring 0.3 x 0.2 cm and wharton-b rown in color . The wilbert ns are inked green . The speci men is bisec rachell and entir giuliano submi tted in one casse tte. Gross exam( s) perfo rmed at: [facility] [place] [address] [facility] [address], [place] [address] Labor atory Direc tor: JOSESITO Grace MD Not Available [facility] [place] [facility] [address] [facility], [place], [address], 06/10/2024 19:25:39 06/08/19 25 06/10/2024 TISSU E PATHO LOGY A diagnosis [place] tofib fabian, biops y wilbert ns free of lesio n. Not Available [facility] [place] [facility] [address], [place], [address], 06/10/2024 19:25:39 07/05/19 25 07/06/2024 TISSU E PATHO LOGY clinical information 44-ye ar-ol d with velvet mesa ings lumba r regio n x 3 years , repea rachell infla mmati on/in fecti on Not Available [facility] [place] [facility] [address] [facility], [place], [address], 07/06/2024 22:38:20 07/05/19 25 07/06/2024 TISSU E PATHO LOGY pathologist Juan grace M.D., Board Certi fied in Anato en Patho logy and Clini karen Patho logy (elec troni c signa ture) Not Available [facility] [place] [facility] [address], [place], [address], 07/06/2024 22:38:20 07/05/19 25 07/06/2024 TISSU E PATHO LOGY A clinical impression Forei gn body Not Available [facility] [place] [facility] [address] [place], [address], 07/06/2024 22:38:20 07/05/19 25 07/06/2024 TISSU E PATHO LOGY A source Lumba r regio n, biops y Not Available [facility] [place] [facility] [address] [place], [address], 07/06/2024 22:38:20 07/05/19 25 07/06/2024 TISSU E PATHO LOGY A gross description The speci men is recei gordy in a 10% neutr al buffe red forma mary conta iner, label ed with multi ple patie nt's ident ifier (s) and consi sts of a black stone with attac hed metal measu ring 0.3 x 0.3 x 0.4 cm with henry- wharton soft tissu e measu ring 0.5 x 0.5 x 0.2 cm and a red stone with attac hed metal measu ring 0.3 x 0.2 x 0.4 cm with henry- wharton soft tissu e measu ring 0.4 x 0.4 x 0.2 cm. The stone s are only for gross exami natio n while the entir e soft tissu e is submi tted in one casse tte (soft tissu e attac hed to red stone is inked green ). N.R. Gross exam( s) perfo rmed at: [facility] [place] [address] [facility] [place] [address] Labor atory Direc tor: JOSESITO Grace MD Not Available [facility] [place] [facility] [address] [place], [address], 07/06/2024 22:38:20 07/05/19 25 07/06/2024 TISSU E PATHO LOGY A diagnosis Porti ons of cutan eous tissu e with parti al cavit ation ; and featu res focal ly of epide rmal cyst forma tion (with isabel cunningham ruptu re). Not Available [facility] [place] [facility] [address] [facility], [place], [address], 07/06/2024 22:38:20 07/05/19 25 07/06/2024 TISSU E PATHO LOGY A comment The histo logic pictu re corre lates with the histo ry of forei gn body penet ratio n and entra pment . Not Available [facility] [place] [facility] [address], [place], [address], 07/06/2024 22:38:20 Result Notes None recorded. Problems Name Problem SNOMED Code Status Onset Date Resolution Date Notes Provider Name and Address Organization Details Recorded Time Dyslipide rock 663695232 Active 2023 Dyslipidem ia Not Available [facility] 4 10:32:49 Conjuncti vitis 6422845 Active 2021 Unspecifie d conjunctiv itis; W/U Status: confirmed Not Available [facility] 5 16:26:35 Low back pain 741873534 Active 2015 Low back pain; W/U Status: confirmed Not Available [facility] 5 16:26:35 Attention deficit hyperacti vity disorder 120526091 Active 2015 Attention- deficit hyperactiv ity disorder, other type; W/U Status: confirmed Not Available [facility] 5 16:26:35 Refractor y migraine without aura 968936679 Active 2022 Migraine without aura, intractabl e, with status migrainosu s; W/U Status: confirmed Not Available [facility] 5 16:26:34 Tobacco user 671696459 Active 2015 Tobacco user Not Available [facility] 4 10:32:51 Nicotine dependenc e 99992211 Active 2015 Nicotine dependence , unspecifie d, uncomplica rachell; W/U Status: confirmed Not Available [facility] 5 16:26:35 Hyperlipi demia 13601072 Active 2023 Dyslipidem ia; W/U Status: confirmed Not Available [facility] 16:26:36 Problem Notes None recorded. Procedures Surgical History Date Name Laterality Status Provider Name and Address Organization Details Recorded Time 07/05/19 25 Punch Biopsy_MC completed Jarett Villarreal MD [address], [place], [address], [facility] 07/06/2024 15:22:21 06/08/19 25 Punch Biopsy completed Jarett Villarreal MD [address], [place], [address], [facility] 06/10/2024 21:22:29 05/24/19 25 In House Lab Draw [facility] 05/24/2024 16:30:36 05/24/19 25 Flu & Covid Vaccine Administration completed Divina Kimble [facility] 05/24/2024 17:45:59 05/04/19 10 hysterectomy completed Divina Kimble [facility] 05/23/2024 17:28:16 insertion of bilateral breast prostheses completed Divina Kimble [facility] 05/23/2024 17:23:27 Reconstruction of nose [facility] 05/23/2024 17:28:23 salpingo-oophorec moustapha completed Divina Kimble [place] [facility] 05/23/2024 17:29:04 Imaging Results None recorded. Procedure Notes None recorded. Medical Equipment None Reported. Allergies Allergen ID Allergen Name Allergen Category Reaction Reaction Severity Criticality Documentation Date Start Date Code Code System Note Provider Name and Address Organization Details Recorded Time 21989 Medicinal product acting as adhesive (product) environme nt,medica tion Not available Not available Not available 05/26/20242013 26617 2008 SNOMED ADHES TIMBO TAPE - Eye adhes timbo glue unrec ogniz ed react ion (text : *Unkn own - Follo w up neede d, code: 24199 5006) (from [facility]) unrec ogniz ed react ion (text : *Unkn own, code: 42008 005) (from [facility]) Jarett Villarreal MD [address], [place], [address], [facility] 5 18:59:26 42205 codeine medicatio n Not available Not available Not available 05/26/20242003 2670 RxNorm unrec ogniz ed react ion (text : Nause a And Vomit ing, code: 79796 000) (from [facility]) Jarett Villarreal MD [address], [facility], [address], [facility] 5 19:01:34 30131 Canis lupus familiari s extract environme nt Not available Not available Not available 05/26/20242018 58412 4 RxNorm unrec ogniz ed react ion (text : Unkno wn, code: 72176 5006) (from [facility]) Jarett Villarreal MD [address], [facility], [address], [facility] 5 19:02:02 74405 venlafaxi ne medicatio n nausea other Not available Not available [facility] 05/26/20242000 77440 RxNorm sever e SHUKLA + nause a(Eff exor) Jarett Villarreal MD [address], [facility], [address], [facility] 5 19:02:49 32745 Product containin g beta adrenergi c receptor antagonis t (product) medicatio n other Not available unabletoasse 05/26/20242017 19015 009 SNOMED Patie nt is recei ving aller gen immun other apy. Takin g a beta block er while recei ving Aller gen Immun other apy is contr aindi cated since beta block ers may inter fere with treat ment of anaph ylaxi s. Pleas e infor m presc ribin g aller gist if beta block er thera py is neede d. Immun other apy start date: 04/12 . Jarett Villarreal MD [address], [place], [address], [facility] 5 19:03:39 32248 citalopra m hydrobrom hiro medicatio n Not available Not available Not available 07/27/2024 83575 8 RxNorm Comme nt: Type: Aller gy ; Not Available [facility] 5 10:45:52 07844 dihydroer gotamine mesylate medicatio n Not available Not available Not available 07/27/2024 64812 6 RxNorm Comme nt: Type: Aller gy ; Not Available [facility] 5 10:45:53 19251 sumatript an succinate medicatio n Not available Not available Not available 07/27/2024 07588 RxNorm Comme nt: Type: Aller gy ; Not Available [facility] 5 10:45:53 9808 prasteron e medicatio n Not available Not available Not available 03/14/2024 3143 RxNorm Comme nt: Type: Aller gy ; Not Available [facility] 5 10:45:53 9814 zolmitrip wharton medicatio n anaphylax is itching Not available Not available high 03/14/20242001 40721 5 RxNorm ZOMIG : throa t dorothea ed,it heidi Jarett Villarreal MD [address], [place], [address], [facility] 5 19:02:59 9823 metaxalon e medicatio n Not available Not available Not available 03/14/2024 32030 RxNorm React ion: migra ine; Comme nt: Type: Side Effec ts ; Not Available [facility] 5 10:45:53 9830 dihydroer gotamine medicatio n dyspnea itching Not available Not available high 03/14/20242008 3418 RxNorm Itchy . Jarett Villarreal MD [address], [place], [address], [facility] 5 19:01:51 9837 citalopra m medicatio n nausea Not available low 03/14/20242000 2556 RxNorm ineff ectiv e + nause a (Sara xa) Jarett Villarreal MD [address], [place], [address], [facility] 5 19:01:27 9844 sumatript an medicatio n Not available Not available high 03/14/2024 96143 RxNorm throa t swell ing, diffi culty breat alphonse Jarett Villarreal MD [address], [facility] [place], [address], [facility] 5 19:02:25 9849 Effexor medicatio n Not available Not available Not available 03/14/2024 32156 2 RxNorm Comme nt: Type: Aller gy ; Not Available [facility] 5 10:45:54 Medications Name Sig Start Date Stop Date Status Note LastModified by Organization Details LastModified Time cetirizin e 10 mg tablet 1 tablet; Once a day at bedtime as needed active Action: Taking S ource: Balbina Villarreal Prepare d By: Balbina Villarreal Not Available Not Available Not Available azithromy leanne 250 mg tablet TAKE 2 TABLETS BY MOUTH TODAY, THEN TAKE 1 TABLET DAILY FOR 4 DAYS DIRECTED 05/24 completed Not Available Not Available Not Available benzonata te 200 mg capsule TAKE 1 CAPSULE BY MOUTH THREE TIMES A DAY NEEDED FOR COUGH 05/24 completed Not Available Not Available Not Available hydrocodo ne 5 mg-acetam inophen 325 mg tablet TAKE ONE TABLET BY MOUTH EVERY 6 HOURS NEEDED FOR PAIN active Not Available Not Available No t Available ondansetr on HCl 4 mg tablet TAKE ONE TABLET BY MOUTH EVERY 8 HOURS NEEDED active Not Available Not Available No t Available prednison e 20 mg tablet PLEASE SEE ATTACHED FOR DETAILED DIRECTIO NS 05/24 completed Not Available Not Available Not Available dextroamp hetamine- amphetami ne 10 mg tablet TAKE ONE TABLET BY MOUTH EVERY DAY FOR ONE WEEK, THEN INCREASE TO TAKE ONE TABLET BY MOUTH TWICE A DAY active Not Available Not Available No t Available clonazepa m 0.5 mg tablet TAKE ONE TABLET BY MOUTH NEEDED FOR DENTIST APPOINTM ENT DAILY 07/04 completed Not Available Not Available Not Available methylpre dnisolone 4 mg tablet TAKE 5 TABLETS BY MOUTH ON DAY 1, 4 TABLETS ON DAY 2, 3 TABLETS ON DAY 3, 2 TABLETS ON DAY 4, 1 TABLET ON DAY 5, THEN STOP 05/18 completed Source: Cherelle Denson Not Available Not Available Not Available amoxicill in 500 mg tablet TAKE ONE TABLET BY MOUTH THREE TIMES A DAY UNTIL GONE active Not Available Not Available No t Available oxycodone -acetamin ophen 5 mg-325 mg tablet 1 tablet as needed; every 4-6 hrs active Action: Unknown Source: Sai Parada repared By: BALBINA VILLARREAL Not Available Not Available Not Available terbinafi ne HCl 250 mg tablet 1 tablet; Once a day for 12 weeks 03/03 completed Action: Not-Taki ng/PRN S ource: Ed Bailon Prepare d By: Balbina Villarreal As sessment : B35.1 Onychomy cosis Not Available Not Available Not Available dextroamp hetamine- amphetami ne 20 mg tablet TAKE 1 TABLET IN THE MORNING FOR 1 WEEK WITH 10 MG IN THE AFTERNOO N, SECOND WEEK TAKE 1 TABLET TWICE A DAY active Not Available Not Available No t Available polymyxin B sulfate 10,000 unit-trim ethoprim 1 mg/mL eye drops 1 drop into affected eye; Four times a day; 5 day(s) 03/04 completed Action: Start So urce: Chloe Link Prepare d By: Chloe Link 02/28/20 12:11:49 PM Asses sment: H10.9 Unspecif ied conjunct ivitis e Prescrip tion: ePrescri ption-PI [facility] -MDScrip t Not Available Not Available Not Available divalproe x 125 mg tablet,de layed release 1 tablet Orally four times a day active Not Available Not Available No t Available omeprazol e 20 mg capsule,d elayed release Take 1 capsule every day by oral route at bedtime. 07/045 completed Not Available Not Available Not Available codeine 10 mg-guaife nesin 100 mg/5 mL oral liquid TAKE 10ML BY MOUTH AT BEDTIME IF NEEDED FOR COUGH 05/24 completed Not Available Not Available Not Available epinephri ne 0.3 mg/0.3 mL injection , auto-inje ctor inject into front part of thigh as needed for serious allergic reaction 2024 active Not Available Not Available Not Avai lable cefuroxim e axetil 500 mg tablet TAKE 1 TABLET BY MOUTH TWO TIMES DAILY FOR 10 DAYS. 05/24 completed Not Available Not Available Not Available methylpre dnisolone 4 mg tablets in a dose pack 04/14 completed Source: Cherelle Denson Not Available Not Available Not Available albuterol sulfate HFA 90 mcg/actua tion aerosol inhaler INHALE 1 TO 2 PUFFS BY MOUTH EVERY 4 HOURS NEEDED FOR SHORTNES S OF BREATH OR FOR WHEEZE active Not Available Not Available No t Available ketorolac 60 mg/2 mL intramusc ular solution 0.5 mL as needed; once daily; 1 days active Action: Not-Taki ng/PRN S ource: Naomie Gaspar Prepare d By: Balbina Villarreal As sessment : G43.011 Migraine without aura, intracta ble, with status migraino crescencio Not Available Not Available Not Available celecoxib 100 mg capsule 1 capsule; Twice a day 03/03 completed Action: Not-Taki ng/PRN S ource: Balbina Villarreal Prepare d By: Balbina Villarreal As sessment : M54.5 Low back pain Not Available Not Available Not Available fluticaso ne propionat e 50 mcg/actua tion nasal spray,crescencio pension USE 2 SPRAYS IN BOTH NOSTRILS ONCE A DAY 05/24 completed Not Available Not Available Not Available amoxicill in 875 mg-potass ium clavulana te 125 mg tablet TAKE 1 TABLET BY MOUTH TWO TIMES A DAY WITH MEALS FOR 10 DAYS 05/24 completed Not Available Not Available Not Available Mucinex 600 mg tablet, extended release 1 tablet; every 12 hrs; 10 days 04/17 completed Action: Start So urce: Naomie Gaspar Prepare d By: Naomie Gaspar 04/07/20 03:14:06 PM ePres cription : ePrescri ption-CV S/ph[employer] cy #[id number] Not Available Not Available Not Available atomoxeti ne 10 mg capsule TAKE 1 CAPSULE BY MOUTH EVERY MORNING (SWALLOW WHOLE) active Not Available Not Available No t Available ketorolac 60 mg/2 mL intramusc ular syringe 0.5 mL as needed Intramus cular once daily for 1 days 03/03 completed Not Available Not Available Not Available Narcan 4 mg/actuat ion nasal spray as directed 03/03 completed Action: Not-Taki ng/PRN S ource: Balbina Villarreal Prepare d By: Balbina Villarreal Not Available Not Available Not Available Aimovig Autoinjec tor 140 mg/mL subcutane ous auto-inje ctor as directed active Action: Taking S ource: Kenton Dias Not Available Not Available Not Available Salonpas (lidocain e) 4 % topical patch APPLY 1 PATCH TO SKIN ONCE DAILY. KEEP ON FOR 12 HOURS, AND THEN REMOVE FOR 12 HOURS. active Not Available Not Available No t Available Vyepti 100 mg/mL intraveno us solution as directed Intraven ous 2024 active Not Available Not Available Not Avai lable Nurtec ODT 75 mg disintegr ating tablet 1 tablet on the tongue and allow to dissolve Orally 2024 active Not Available Not Available Not Avai lable Vitals Date Recorded Body height Body mass index (BMI) Body weight Body temperature Heart rate Respiratory rate Oxygen saturation Oxygen saturation in Arterial blood by Pulse oximetry Systolic blood pressure Diastolic blood pressure Provider Name and Address Organization Details Last Updated DateTime 5 154.94 cm 31.9 kg/m2 60545.1 1 g 98.3 [degF] 105 /min 20 /min 98 % 98 % 115 mm[Hg] 80 mm[Hg] Divina Kimble [facility] 5 16:15:06 Date Recorded Systolic blood pressure Diastolic blood pressure Provider Name and Address Organization Details Last Updated DateTime 06/08/2024 118 mm[Hg] 74 mm[Hg] Jarett Villarreal MD [address] [place], [address], [facility] 06/08/2024 15:39:04 Date Recorded Body height Body mass index (BMI) Body weight Body temperature Heart rate Respiratory rate Oxygen saturation Oxygen saturation in Arterial blood by Pulse oximetry Systolic blood pressure Diastolic blood pressure Provider Name and Address Organization Details Last Updated DateTime 154.94 cm 32.1 kg/m2 23528.7 g 97.5 [degF] 106 /min 18 /min 99 % 99 % 131 mm[Hg] 95 mm[Hg] Divina Kimble [facility] Balanced 15:08:30 Date Recorded Body height Body mass index (BMI) Body weight Body temperature Heart rate Oxygen saturation Oxygen saturation in Arterial blood by Pulse oximetry Respiratory rate Systolic blood pressure Diastolic blood pressure Provider Name and Address Organization Details Last Updated DateTime 154.94 cm 31.8 kg/m2 55852.3 1 g 99.6 [degF] 102 /min 97 % 97 % 16 /min 116 mm[Hg] 79 mm[Hg] Josefina Eganalbania [facility] Balanced 16:11:28 Social History None recorded. Functional Status None recorded. Mental Status None recorded. Family History Relationship Description Onset Age of this Age Resolved Age Notes LastModified by Organization Details LastModified Time Father Alive health y [email or web address] Not available 05/23/2024 17:49:48 Mother Malignant melanoma deceas ed Not available 05/23/2024 17:50:21 Brother Alive [email or web address] Not available 05/23/2024 17:51:28 Brother Alive [email or web address] Not available 05/23/2024 17:51:32 Daughter Alive [email or web address] Not available 05/23/2024 17:51:40 Unspecified Relation Suspected drug overdose half [email or web address] r [email or web address] Not available 05/23/2024 17:52:54 Notes:FamilyHistoryDetails: COMMENTS:2 brother(s) , 0 sister(s) . 0 son(s) , 1 daughter(s) Father: Notes: alive, healthy Mother: Notes: , melanoma, malignant NOTE: Notes: 2 half brothers, 1 from drug overdose Medical History Condition Response ADD/ADHD Y Muscle, Joint, or Bone Problems Y Other Headaches Y Gynecological HistoryNo gynecological history recorded. Obstetrics History GPAL:G 0 P 0 0 0 0 Immunizations Vaccine Type Date Status Note Provider Nam e and Address Organization Details Recorded Time COVID-19, mRNA, LNP-S, PF, chelsea-sucrose, 30 mcg/0.3 mL 5 completed Jarett Villarreal MD [address], [place], [address], [email or web address] 05/26/2024 18:54:06 Influenza, split virus, trivalent, PF 5 completed Jarett Villarreal MD [address], [place], [address], [email or web address] 05/26/2024 18:54:05 COVID-19, mRNA, LNP-S, PF, 100 mcg/0.5mL dose or 50 mcg/0.25mL dose 1 completed Not Available [facility] 07/22/2024 16:20:23 Tdap 4 completed Not Available [facility] 07/22/2024 16:20:25 Influenza, split virus, quadrivalent, PF 9 completed Not Available [facility] 07/22/2024 16:20:25 Influenza, split virus, quadrivalent, PF 9 completed Not Available [facility] 07/22/2024 16:20:24 COVID-19, mRNA, LNP-S, PF, 100 mcg/0.5mL dose or 50 mcg/0.25mL dose 1 completed Not Available [facility] 07/22/2024 16:20:24 Influenza, split virus, quadrivalent, PF 8 completed Jarett Villarreal MD [address], [place], [address], [email or web address] 05/26/2024 19:04:06 Tdap 2 completed Not Available [facility] 03/14/2024 10:52:25 influenza, unspecified formulation 8 completed Jarett Villarreal MD [address], [place], [address], [email or web address] 05/26/2024 19:04:06 Past Encounters Encounter ID Performer Location Encounter Start Date Encounter Closed Date Diagnosis/Indication Diagnosis SNOMED-CT Code Diagnosis ICD10 Code Diagnosis Note [id number] Jarett Villarreal MD [facility] [address] [place] [address] 05/24/2024 15:30:06 2024 14:06:12 History and physical examination, insurance [id number] Z02.6 reviewed point of care lab results and discussed labs being sent to [facility] Preventive Visit Physician Verificati on form completed/ signed and sent to front office for fax to [facility] [employer] Refractory migraine without aura [id number] G43.011 rec f/u with Dr Jose at [facility] as planned Anaphylaxis 42921926 T78 .2XXD discussed proper use of Epi-Pen, injecting into anterior thigh Dyslipidemia 006024788 E 78.5 Recommend healthy diet with plentiful fresh fruits and vegetables , lean sources of protein, whole grains and plant fats.encou rage regular exercise, working toward 30-45 mins of moderate intensity cardiovasc ular activity 4-5 days per week. Start slowly and increase by 10% weekly ACC-AHA ASCVD 10 year risk is 1.1% with present lab results Persistent cough 5942296 02 R05.3 suspect multifacto rial due to post-nasal drip and likely GERDNasal saline 2 sprays in each nostril 2 to 4 times daily (or may use Netti Pot or Mccoy Sinus Rinse)rec resume Fluticason e NS and use at least 2-4 weeksdiscu ssed trial of PPI adn rec use for min of 4-6 weeksif worse no better rec re-eval Vaccination needed 76199 55165 77438 Z23 discussed and rec Covid-19 and Flu vaccines (pt has 89 yo GM living at home with her)- pt agreeable to obtain today Benign stefany plasm of skin 16734817 D23.9 suspect atopic dermatitis -rec punch biopsy at patient convenien e (shave biopsy would be appropriat e as well however lesion nearly abuts tattoo and punch biopsy would likely avoid encroachme nt to edge of tattoo) Platelet c ount above reference range 434186116 R79.89 Plt 423 on screening today Obesity 724589328 E66.9 discussed medical therapy options for weight management including details of GLP-1 and GLP-1/GIP medication s (including black box warnings, side effects, length of use etc)-pt wishes to consider options as she is busy caring for her GM and is also not certain that she wishes to commit to [facility] medication use (pt did lose 13.5# since 89Ums01 ov w/o medical therapy use) [id number] Jarett Villarreal MD [address] [address] 06/08/2024 14:58:16 06/08/2024 17:58:54 Benign neoplasm of skin 69307589 D23.9 suspect atopic dermatitis post-proce dure care discussed in detail including keep site clean and dry, apply a thin layer of Bacitracin or Neosporin three times daily until healed, monitor for symptoms and signs of infection and call office if occurs, return for suture removal in 7-10 days [id number] Jarett Villarreal MD [address] [address] 07/04/2024 15:46:38 07/05/2024 13:22:21 Foreign body in skin 91370654 W45.8XXS post-proce dure care was reviewed in detail including recommenda tion for topical applicatio n of bacitracin ointment (thin layer) 2-3 times per day until healed, keeping site otherwise clean and drymonitor for symptoms and signs of infection (reviewed) rec Acetaminop hen or Ibuprofen per MLD as needed for painrec nurse visit for suture removal in 7-10 days discussed removal of the right sided piercings by punch biopsy technique- pt may schedule at a time of her convenienc e Health Concerns Section Related Observation LastModified by Organization Detai ls LastModified Time None Recorded Concern Status LastModified by Organization Details LastModified Time None Recorded Advance Directives Directive None Recorded Payers Insurance Date Sequence Insurance Name Policy Number Policy Michaels Covered Member ID Michaels Member ID Guarantor Name 07/06/2024 1 [employer] [id number] Kalyani spencer [id number] Kalyani Cornejo Notes Date Note Type Note Provider Name and Address Organization Details Recorded Time 05/24/2024 text/html Edgar is a 43-year -old female who presents for her yearly [facility] examination and she denies any interim PMH-PSH since her last visit to [facility] on . She has continued receiving care for her Migraine SHUKLA's at the [facility] since May of 2023 (Lobo Jose MD, FAAN). She was initially started on Divalproex which was discontinued with Vyepti added in June and Nurtec added in early August of 2023. She has continued to obtain trigger point injections 1 month prior to her Botox injections and she is scheduled for a follow-up ov in the next few weeks . Since her last visit she has sought out care from Psychiatry for consideration of resuming stimulant therapy for ADHD (she had taken Adderall 10-15 years ago and discontinued it in 2019 during the early part of the Covid-19 pandemic). She has started her care at the [facility] [place] in [place] (she completed an EKG yesterday along with labs including a Vitamin D, B12 and other unknown chemistries. She is anticipating starting Adderall in the near future. She does have a skin lesion of the left wrist which she first noted approximately 17months ago which since has intermittently swelled and then gone down in size, ? fissured and itched. It has intermittently bled although it had doubled in size prior to her August 2023 visit here. She had shaved it down while shaving her arms during the summer and it has not re-grown significantly since. Edgar does ride a motorcycle and has a h/o sun exposure in that regard. She has not had any dysplastic or malignant lesions removed in the past however her mother has a h/o Melanoma. She is in need of an Epi-Pen refill (she has a h/o anaphylactic like reactions to unknown triggers, despite completing Allergy consultations followed by Allergy Immunotherapy in the past). The patient is presently vaping nicotine however is no longer chewing tobacco. She has not used MJ in a number of months and denies the use of other recreational drugs. The patient relates that she began to experience a cough in February (had sinus pain/pressure/draina ge at that time), was seen in and was treated with Amoxicillin and prednisone for 5 days w/o benefit. She returned to approximately 1 month later and had a CXR completed (normal), was treated with Azithromycin and a second unknown antibiotic and a tapering steroid dose pack along with Fluticasone NS (1 week of use only), all without benefit. The cough has persisted, generally worse at night, typically dry and barking in nature. During the day the cough is improved although it comes and goes. She denies shortness of breath, hemoptysis, chest pains, or headaches however she sometimes experiences heartburn, typically at night occurring 2-3 days per week with improvement with as needed Famotidine. She continues to vape nicotine however she does not smoke or use MJ. Her boyfriend and her 89 yo GM live at home and no others have been ill. The patient is also interested in the possible use of weight loss medications. She generally eats fairly healthy and gets some exercise (running around the house, playing with 50# Song[employer] mix. She has not utilized medical therapy for weight loss in the past. Jarett Villarreal MD [address] [facility],[address], [place], [address], [facility] Balanced 05/26/2024 19:24:43 06/08/2024 text/html The patient pres ents for a punch biopsy of a skin lesion of the left wrist (dorsal surface) which she first noted approximately 17months ago. The lesion has intermittently swelled and then gone down in size, ? fissured and itched. It has intermittently bled although it had doubled in size prior to her August 2023 visit here. She had shaved it down while shaving her arms during the summer and it has not re-grown significantly since. Edgar does ride a motorcycle and has a h/o sun exposure in that regard. She has not had any dysplastic or malignant lesions removed in the past however her mother has a h/o Melanoma. She is feeling well today and is without acute complaints, The benefits, risks, alternative procedures, and possible complications not limited to allergic reactions, bleeding, infection, scarring, inability to complete the procedure, need for additional surgery were discussed, questions were answered to the best of my ability and informed consent was signed. Jarett Villarreal MD [address] [facility] [address], [place], [address], [email or web address] 06/10/2024 21:36:36 07/04/2024 text/html The patient pres ents for removal of 2 surface piercings of the lower back which were placed approximately 3-4 years ago. She has noted intermittent episodes of inflammation and drainage since the original placement. The sites have become more frequently inflamed over the past 6 months. At the present time she is on Amoxicillin 500mg three times per day started on 27Feb 25 due to dry sockets following dental extractions and the sites have been dry. She is presently pain free with regards to the piercings and denies fevers, chills or other acute symptoms. The benefits, risks, side effect and possible complications of foreign body removal (possibly simple extraction following local anesthesia, incision and removal or punch biopsy removal) were discussed not limited to allergic reactions, bleeding, infection, scarring, inability to remove the foreign body, need for additional surgery. The patient's questions were answered to the best of my ability and consent was signed. Jarett Villarreal MD [address] [place] [address],[address], [place], [address], [email or web address] 07/06/2024 15:31:22 OBGyn Episode No OBEpisode recorded.
--- OUTSIDE RECORDS SUMMARY | 2024-10-28 01:06 | XMS_ITS | Clinical Summary ---
Author Organization [facility] Address [address] [place] [id number] Care Team Providers Care Data Reporting Analyst Name Role Phone Pcp, No Primary Care Provider Unavailabl e Allergies Active Allergy Reactions Criticality Noted Date Comments Adhesive *Unknown - Follow up needed,*Unknown 07/30/2013 ADHESIVE TAPE - Eye adhesive glue Beta-Blockers (Beta-Adrenergic Blocking Agts) Other - Describe In Comment Field 04/08/2018 Patient is receiving allergen immunotherapy. Taking a beta ja while receiving Allergen Immunotherapy is contraindicated since beta blockers may interfere with treatment of anaphylaxis. Please inform prescribing financial sales manager if beta ja therapy is needed. Immunotherapy start date: 04/12/2018. Patient is receiving allergen immunotherapy. Taking a beta ja while receiving Allergen Immunotherapy is contraindicated since beta blockers may interfere with treatment of anaphylaxis. Please inform prescribing financial sales manager if beta ja therapy is needed. Immunotherapy start date: 04/12/2018. Patient is receiving allergen immunotherapy. Taking a beta ja while receiving Allergen Immunotherapy is contraindicated since beta blockers may interfere with treatment of anaphylaxis. Please inform prescribing financial sales manager if beta ja therapy is needed. Immunotherapy start date: 04/12/2018. Patient is receiving allergen immunotherapy. Taking a beta ja while receiving Allergen Immunotherapy is contraindicated since beta blockers may interfere with treatment of anaphylaxis. Please inform prescribing financial sales manager if beta ja therapy is needed. Immunotherapy start date: 04/12/2018. Patient is receiving allergen immunotherapy. Taking a beta ja while receiving Allergen Immunotherapy is contraindicated since beta blockers may interfere with treatment of anaphylaxis. Please inform prescribing financial sales manager if beta ja therapy is needed. Immunotherapy start date: 04/12/2018. Cat Dander Other - Describe In Comment Field 07/30/2013 CATS Citalopram *Unknown - Follow up needed,Nausea Only,*Unknown Low 07/17/2000 ineffective + nausea (Celexa) Dihydroergotamine *Unknown - Follow up needed,Shortness Of Breath,Hives,Itc alphonse,*Unknown High 07/17/2008 Itchy. Hives Dog Dander *Unknown - Follow up needed 07/11/2018 Dust Mites *Unknown 11/05/2001 Grass Pollen Rash 11/05/2001 Venlafaxine *Unknown - Follow up needed,Nausea Only,Other - Describe In Comment Field,*Unknown Medium 07/17/2000 severe SHUKLA + nausea(Effexor) Zolmitriptan *Unknown - Follow up needed,Anaphylax is,Itching,*Unkn own High 12/06/2001 ZOLMITRIPTAN - ZOMIG: throat swelled,itchy ZOLMITRIPTAN - ZOMIG: throat swelled,itchy ZOMIG: throat swelled,itchy Medications aspirin-acetamino phen-caffeine (EXCEDRIN EX STR) 250-250-65 mg Take 1 Tablet by mouth every 6 hours if needed. Active EPINEPHrine (EPIPEN) 0.3 mg/0.3 mL injection 07/19/19 21 Active Narcan 4 mg/actuation nasal spray CALL 911. SPR CONTENTS OF ONE SPRAYER (0.1ML) INTO ONE NOSTRIL. REPEAT IN 2-3 MIN IF SYMPTOMS OF OPIOID EMERGENCY PERSIST, ALTERNATE NOSTRILS 04/15/20 21 Active loratadine (Claritin) 10 mg tablet Take 10 mg by mouth once daily. Active valACYclovir (VALTREX) 1 gram tabletIndications :Cold sore Take 2 Tablets (2 g) by mouth two times daily. 60 Tablet 02/07/20 23 Active Nurtec ODT 75 mg orally disintegrating tablet DISSOLVE 1 TABLET IN MOUTH TWICE A DAY NEEDED Active albuterol HFA (PRO-AIR; VENTOLIN; PROVENTIL) 90 mcg/actuation inhalerIndication s:Lower respiratory infection (e.g., bronchitis, pneumonia, pneumonitis, pulmonitis) Inhale 1-2 Puffs by mouth every 4 hours if needed for Shortness Of Breath or Wheezing. 3 Each 3 04/05/20 24 Active Salonpas, lidocaine, 4 % topical patch Apply 1 Patch on dry, clean, hairless skin once daily. Active ondansetron (ZOFRAN) 4 mg tablet Take 4 mg by mouth every 8 hours if needed for Nausea/Vomiting. Active atomoxetine (STRATTERA) 10 mg capsule Take 10 mg by mouth once daily. 05/20/19 25 Active cetirizine 10 mg tablet 1 tablet; Once a day at bedtime as needed Active dextroamphetamine -amphetamine 20 mg tablet TAKE 1 TABLET IN THE MORNING FOR 1 WEEK WITH 10 MG IN THE AFTERNOON, SECOND WEEK TAKE 1 TABLET TWICE A DAY Active eptinezumab-jjmr (Vyepti) 100 mg/mL injection as directed Intravenous 05/24/19 25 Active clonazePAM 1 mg tablet TAKE 1 TABLET BY MOUTH NEEDED FOR DENTIST APPOINTMENTS 09/24/19 25 Active HYDROcodone-aceta minophen (5-325 mg/tablet)Indicat ions:Abdominal pain, unspecified abdominal location Take 1-2 Tablets by mouth every 6 hours if needed for Pain. Max acetaminophen dose: 4000 mg in 24 hrs. 5 Tablet 10/07/19 25 Active ondansetron 4 mg disintegrating tabletIndications :Abdominal pain, unspecified abdominal location Place 1 Tablet (4 mg) on the tongue every 6 hours if needed for Nausea/Vomiting. 10 Tablet 10/07/19 25 Active ondansetron (ZOFRAN ODT) 4 mg disintegrating tabletIndications :Nausea and vomiting, unspecified vomiting type Place 2 Tablets (8 mg) on the tongue two times daily. 10 Tablet 02/07/20 23 025 Discontin ued(*Med complete/ Regimen complete/ Level of care change) Active Problems Problem Noted Date Diagnosed Date Dyslipidemia 03/24/2024 Shoulder pain 03/24/2024 Intractable chronic migraine with aura with status migrainosus 05/14/2023 Allergic rhinitis 07/30/2013 Overview (03/24/2024): Allergic rhinitis due to other allergen Insomnia 11/02/2012 Overview (03/24/2024): Problem list name updated by automated process. Provider to review Attention deficit hyperactivity disorder (ADHD) 02/12/2011 Overview (03/24/2024): Problem list name updated by automated process. Provider to review Chronic post-traumatic stress disorder (PTSD) Overview (03/24/2024): Posttraumatic Stress Disorder Common migraine with intractable migraine 2009 Overview (03/24/2024): Note the taper letter on 11/20/2011 is in error. Problem list name updated by automated process. Provider to review Dysmenorrhea 02/14/2009 Herpes simplex virus (HSV) infection 05/08/2006 Overview (03/24/2024): Problem list name updated by automated process. Provider to review Pain in joint, lower leg 2003 Encounters Date Type Department Care Team Description 10/06/2024 4:25 PM CDT - 10/06/2024 9:15 PM CDT Emergency [facility] [address] [place] [address] Fide Lazar MD Abdominal pain, unspecified abdominal location (Primary Dx) Discharge Disposition: Home Self Care 10/06/2024 11:50 AM CDT Office Visit [facility] [address] [place] [address] Hank Kyle PA Abdominal Pain 10/06/2024 Travel 09/05/2024 4:50 PM CDT Office Visit [facility] [address] [place] [address] Mariah Beckwith PA Urinary Problem 09/05/2024 Travel from Last 3 Months Immunizations Immunization Administration Dates Next Due COVID-19 vaccine (Moderna 100mcg/0.5mL) PF MDV 12/21/2020 DTP 11/30/1980 Hepatitis B, Unspecified 11/28/1996,11/01/1996 Influenza Virus, Unspecified 03/08/2018 Influenza, IIV4 03/01/2019 MMR 11/29/1991,09/01/1980 Oral Polio Vaccine 11/30/1980 Td (Age >=7 Years) 10/06/1994 Td, Preservative Free (age >= 7 Years) 5 Tdap 08/18/2023,06/26/2011 Family History Medical History Relation Name Comments Drug Abuse Brother 1 from OD No Known Problems Brother 2 No Known Problems Father Hypertension Maternal Grandfather Dementia Maternal Grandmother Hypertension Maternal Grandmother Melanoma Mother No Known Problems Paternal Grandfather No Known Problems Paternal Grandmother Relation Name Status Comments Brother 1 Brother 2 Alive Father Alive Maternal Grandfather Maternal Grandmother Alive Mother Paternal Grandfather Paternal Grandmother Alive Social History Tobacco Use Types Packs/Day Years Used Date Smoking Tobacco: Former Cigarettes Passive Smoke Exposure: Past Smokeless Tobacco: Current Chew Tobacco Cessation:Ready to Q uit: Not Asked; Counseling Given: Not Answered Alcohol Use Standard Drinks/Week Comments Yes 6 (1 standard drink = 0.6 oz pur e alcohol) PHQ-2 Answer Date Recorded PHQ-2 TOTAL SCORE 0 05/23/2024 Social Connections Answer Date Recorded Do you often feel lonely or isolated from those around you? 0 12/27/2023 Financial Resource Strain Answer Date R ecorded Difficulty of Paying Living Expenses 3 12/27/2023 Difficulty of Paying Living Expenses Not on file 12/27/2023 Food Insecurity Answer Date Recorded Do you worry your food will run out before you are able to buy more? 1 12/27/2023 Transportation Needs Answer Date Record ed Does lack of transportation keep you from medica l appointments? 1 12/27/2023 Does lack of transportation keep you from work, meetings or getting things that you need? 1 12/27/2023 Housing Stability Answer Date Recorded What is your housing situation today? 1 12/27/2023 Interpersonal Safety Answer Date Record ed Are you being hit, kicked, p ushed or yelled at (see row info)? No 10/06/2024 Interpersonal Safety Abuse 12 - 18 Not on file 10/06/2024 Interpersonal Safety Ambulatory Vulnerability No t on file 10/06/2024 Utilities Answer Date Recorded Do you have trouble paying f or utilities (for example, heat, electricity, water, phone)? 1 12/27/2023 Comments No Sex and Gender Information Value Date Recorded Sex Assigned at Not on file Legal Sex Female 10:04 AM [employer] Gender Identity Not on file Sexual Orientation Not on file Obstetrics History Para Term AB IAB SAB Ectopic Multiple Livin g Live Births 2 1 1 1 1 1 1 Date Outcome GA Total Labor Labor/2nd/3rd Weight Sex Type Anes PTL Jen A1 A5 Name Clin IAB 1999 Term 41w 0d 3.57 kg (7 lb 14 oz) F Livin g 8 9 Waqas govea Delivery Location:[facility] Comments:abstract Last Filed Vital Signs Vital Sign Reading Time Taken Comments Blood Pressure 127/85 10/06/2024 9:00 PM CDT Pulse 75 10/06/2024 9:00 PM CDT Temperature 36.9 C (98.5 F) 10/06/2024 3:15 PM CDT Respiratory Rate 15 10/06/2024 9:00 PM CDT Oxygen Saturation 97% 10/06/2024 9:00 PM CDT Inhaled Oxygen Concentration - - Weight 77.1 kg (170 lb) 10/06/2024 1:20 PM CDT Height 152.4 cm (5') 10/06/2024 1:20 PM CDT Body Mass Index 33.2 10/06/2024 1:20 PM CDT Plan of Treatment Health Maintenance Due Date Last Done Comments HIV for age 15-65 1994 Hepatitis B series for 19+ (3 of 3 - 3-dose series) 02/21/1997 11/28/1996, 11/01/1996 Colonoscopy through age 75 2024 Lipids for age 45-75 2024 Mammogram for age 45-75 2024 Influenza Vaccine (Season Ended) 2025 03/01/2019, 03/08/2018 BMI (ht and wt on same day) for age 18+ 03/24/2025 03/24/2024 Depression screening for age 12+ 05/24/2025 05/24/2024, 05/23/2024, 05/23/2024 Pap test for age 21-65 01/15/2026 01/15/2023, 2022 Tetanus booster 08/17/2033 08/18/2023, 06/05, 10/06/1994, Additional history exists Hepatitis C screening for age 18-79 Completed 05/20/2021 Tdap Completed 08/18/2023, 06/26/2011 COVID-19 vaccine series Completed 05/24/19, 12/21/2020, 05/14/2020 Pneumococcal series for age 6-49 Aged Out No longer eligible based on patient's age to complete this topic Procedures Procedure Name Priority Date/Time Associated Diagnosis Comments CT ABDOMEN PELVIS W STAT 10/06/2024 7 :12 PM CDT URINALYSIS MICROSCOPIC STAT 10/06/2024 6:05 PM CDT URINE STAT 10/06/2024 6:05 PM CDT UA W/ SEDIMENT EXAM REFLEXED PER CRITERIA STAT 10/06/2024 6:05 PM CDT US ABDOMEN LIMITED GALLBLADDER STAT 10/06/2024 5:47 PM CDT HEPATIC FUNCTION PANEL ADRIEN 10/06/2024 3:20 PM CDT LIPASE ADRIEN 10/06/2024 3:20 PM CDT BASIC METABOLIC PANEL STAT 10/06/2024 3:20 PM CDT CBC W PLT NO DIFF STAT 10/06/2024 3:2 0 PM CDT UA W/ SEDIMENT EXAM REFLEXED PER CRITERIA STAT 09/05/2024 5:04 PM CDT UTI symptoms URINE CULTURE Routine 09/05/2024 5:03 PM CDT UTI symptoms HPV HIGH RISK Routine 01/15/2023 11:15 AM CDT ANTI HCV Add On 05/20/2021 11:44 AM [employer] Abdominal pain, RUQ (right upper quadrant) Nausea and vomiting, unspecified vomiting type Elevated LFTs from Last 3 Months or Most Recently Relevant to Health Maintenance Results * CT ABDOMEN PELVIS W (10/06/2024 7:12 PM CDT) Anatomical Region Laterality Modality Abdomen, Pelvis, AORTA, LIVER, SPLEEN Computed Tomography 10/06/2024 7:26 PM CDT Impressions 10/06/2024 7:[address] correlate for the patient`s symptoms seen. Dictated by Christofer Melendez MD @ 10/06/2024 7:26:32 PM Please note that all CT scans at this facility use dose modulation, iterative reconstruction, and/or weight-based dosing when appropriate to reduce radiation dose to as low as reasonably achievable. Dictated by: Christofer Melendez MD @ 10/06/2024 19:26:39 (Electronically Signed) Narrative 10/06/2024 7:26 PM CDT For Patients: As a result of the Cures Act, medical imaging exams and procedure reports are released immediately into your electronic medical record. You may view this report before your referring provider. If you have questions, please contact your health care provider. INDICATION: Abdominal pain TECHNIQUE: CT Abdomen and pelvis with i.v. contrast. Coronal and sagittal reformats were obtained. DLP-DOSE: 310 mGycm CONTRAST: 80 mL Omnipaque 350 COMPARISON: None FINDINGS: Lower chest: Unremarkable. Bilateral breast implants are present and unremarkable in appearancebut only partially visualized. Liver: Unremarkable. Spleen: Unremarkable. Pancreas: Unremarkable. Gallbladder: Unremarkable. Kidney: Unremarkable. No kidney or ureteral stones or obstruction seen. Adrenal: Unremarkable. Bowel: The stomach, small bowel, and colon are unremarkable. The appendix is normal in appearance and size. Vascular: Unremarkable. Lymph: Unremarkable. Peritoneum: Unremarkable. No pneumoperitoneum is seen. No significant ascites is noted. Pelvis: Unremarkable. Soft tissue: Unremarkable. Bone: Unremarkable for age. Procedure Note Christofer Melendez MD - 10/06/2024 For Patients: As a result of the Cures Act, medical imagingexams and procedure reports are released immediately into your electronicmedical record. You may view this report before your referring provider.If you have questions, please contact your health care provider. INDICATION: Abdominal pain TECHNIQUE: CT Abdomen and pelvis with i.v. contrast. Coronal and sagittalreformats were obtained. DLP-DOSE: 310 mGycm CONTRAST: 80 mL Omnipaque 350 COMPARISON: None FINDINGS: Lower chest: Unremarkable. Bilateral breast implants are present andunremarkable in appearancebut only partially visualized. Liver: Unremarkable. Spleen: Unremarkable. Pancreas: Unremarkable. Gallbladder: Unremarkable. Kidney: Unremarkable. No kidney or ureteral stones or obstruction seen. Adrenal: Unremarkable. Bowel: The stomach, small bowel, and colon are unremarkable. The appendixis normal in appearance and size. Vascular: Unremarkable. Lymph: Unremarkable. Peritoneum: Unremarkable. No pneumoperitoneum is seen. No significantascites is noted. Pelvis: Unremarkable. Soft tissue: Unremarkable. Bone: Unremarkable for age. IMPRESSION: 1. No CT correlate for the patient`s symptoms seen. Dictated by Christofer Melendez MD @ 10/06/2024 7:26:32 PM Please note that all CT scans at this facility use dose modulation,iterative reconstruction, and/or weight-based dosing when appropriate toreduce radiation dose to as low as reasonably achievable. Dictated by: Christofer Melendez MD @ 10/06/2024 19:26:39 (Electronically Signed) Fide aLzar MD CT Fi nal Result * URINALYSIS MICROSCOPIC (10/06/2024 6:05 PM CDT) RBC 0-2 0-2, None Seen /HPF 10/06/2024 6:37 PM CDT [facility] WBC 0-2 0-2, 3-5, None Seen /HPF 10/06/2024 6:37 PM CDT [facility] BACTERIA Few None Seen, Rare, Few Bacteria/H PF 10/06/2024 6:37 PM CDT [facility] EPITHELIAL CELLS Few None Seen, Few Epi/HPF 10/06/2024 6:37 PM CDT [facility] Mucus Present 10/06/2024 6:37 PM CDT [facility] Urine URINE SPECIMEN / Unknown Non-Blood / Unknown 10/06/2024 6:05 PM CDT 10/06/2024 6:11 PM CDT [facility] Ed Triage URINE Final Result [facility] [address] [place] [address] * (ABNORMAL) UA W/ SEDIMENT EXAM REFLEXED PER CRITERIA (10/06/2024 6:05 PM CDT) Only the most recent of2 resultswithin the time period is included. COLOR Yellow Yellow Color 10/06/2024 6:19 PM CDT [facility] CLARITY Clear Clear Clarity 10/06/2024 6:19 PM CDT [facility] SPECIFIC GRAVITY,URINE 1.010 1.010, 1.015, 1.020, 1.025 10/06/2024 6:19 PM CDT [facility] PH,URINE 6.5 6.0, 7.0, 8.0, 5.5, 6.5, 7.5, 8.5 10/06/2024 6:19 PM CDT [facility] UROBILINOGEN,Q UALITATIVE Normal Normal EU/dl 10/06/2024 6:19 PM CDT [facility] PROTEIN, URINE Negative Negative mg/dL 10/06/2024 6:19 PM CDT [facility] GLUCOSE, URINE Negative Negative mg/dL 10/06/2024 6:19 PM CDT [facility] KETONES,URINE Negative Negative mg/dL 10/06/2024 6:19 PM CDT [facility] BILIRUBIN,URIN E Negative Negative 10/06/2024 6:19 PM CDT [facility] OCCULT BLOOD,URINE Trace(A) Negative 10/06/2024 6:19 PM CDT [facility] NITRITE Negative Negative 10/06/2024 6:19 PM CDT [facility] LEUKOCYTE ESTERASE Negative Negative 10/06/2024 6:19 PM CDT [facility] Urine URINE SPECIMEN / Unknown Non-Blood / Unknown 10/06/2024 6:05 PM CDT 10/06/2024 6:11 PM CDT us [facility] Ed Triage URINE Final Result [facility] [address] [place] [address] * URINE (10/06/2024 6:05 PM CDT) ,URIN E Negative Negative 10/06/2024 6:21 PM CDT [facility] Urine URINE SPECIMEN / Unknown Non-Blood / Unknown 10/06/2024 6:05 PM CDT 10/06/2024 6:11 PM CDT us [facility] Ed Triage URINE Final Result [facility] [address] [facility] [place] [address] * US ABDOMEN LIMITED GALLBLADDER (10/06/2024 5:47 PM CDT) Anatomical Region Laterality Modality Abdomen Ultrasound 10/06/2024 6:19 PM CDT Impressions 10/06/2024 6:19 PM CDT 1. The gallbladder is unremarkable in appearance. Dictated by Christofer Melendez MD @ 10/06/2024 6:17:59 PM Dictated by: Christofer Melendez MD @ 10/06/2024 18:19:11 (Electronically Signed) Narrative 10/06/2024 6:19 PM CDT For Patients: As a result of the Cures Act, medical imaging exams and procedure reports are released immediately into your electronic medical record. You may view this report before your referring provider. If you have questions, please contact your health care provider. INDICATION: Abdomen pain TECHNIQUE: Ultrasound abdomen limited. Sonographic images of the gallbladder and biliary tree were obtained using henry-scale and color Doppler images. COMPARISON: None FINDINGS: Liver: The liver parenchyma is normal in echotexture. Gallbladder: The neck of the gallbladder is not well demonstrated. No gallstones or sludge seen in the lumen. The gallbladder wall is normal in appearance. No pericholecystic fluid is present. No sonographic Caal s sign is present. Common bile duct: 3 mm. No intrahepatic biliary ductal dilatation seen. Vascular: Proximal abdominal aorta and IVC are not demonstrated. Procedure Note Christofer Melendez MD - 10/06/2024 For Patients: As a result of the 21st Century Cures Act, medical imagingexams and procedure reports are released immediately into your electronicmedical record. You may view this report before your referring provider.If you have questions, please contact your health care provider. INDICATION: Abdomen pain TECHNIQUE: Ultrasound abdomen limited. Sonographic images of thegallbladder and biliary tree were obtained using henry-scale and colorDoppler images. COMPARISON: None FINDINGS: Liver: The liver parenchyma is normal in echotexture. Gallbladder: The neck of the gallbladder is not well demonstrated. Nogallstones or sludge seen in the lumen. The gallbladder wall is normal inappearance. No pericholecystic fluid is present. No sonographic Caal s sign is present. Common bile duct: 3 mm. No intrahepatic biliary ductal dilatation seen. Vascular: Proximal abdominal aorta and IVC are not demonstrated. IMPRESSION: 1. The gallbladder is unremarkable in appearance. Dictated by Christofer Melendez MD @ 10/06/2024 6:17:59 PM Dictated by: Christofer Melendez MD @ 10/06/2024 18:19:11 (Electronically Signed) Fide Lazar MD [facility] nal Result * CBC W PLT NO DIFF (10/06/2024 3:20 PM CDT) WHITE BLOOD COUNT 5.5 4.5 - 11.0 thou/cu mm 10/06/2024 3:34 PM CDT [facility] RED BLOOD COUNT 4.38 4.00 - 5.20 mil/cu mm 10/06/2024 3:34 PM CDT [facility] HEMOGLOBIN 14.4 12.0 - 16.0 g/dL 10/06/2024 3:34 PM CDT [facility] HEMATOCRIT 41.2 33.0 - 51.0 % 10/06/2024 3:34 PM CDT [facility] MCV 94 80 - 100 fL 10/06/2024 3:34 PM CDT [facility] MCH 32.9 26.0 - 34.0 pg 10/06/2024 3:34 PM CDT [facility] MCHC 35.0 32.0 - 36.0 g/dL 10/06/2024 3:34 PM CDT [facility] RDW 11.9 11.5 - 15.5 % 10/06/2024 3:34 PM CDT [facility] PLATELET COUNT 350 140 - 440 thou/cu mm 10/06/2024 3:34 PM CDT [facility] MPV 9.7 6.5 - 11.0 fL 10/06/2024 3:34 PM CDT [facility] NRBC 0.0 % 10/06/2024 3:34 PM CDT [facility] ABS NRBC 0.0 thou /cu mm 10/06/2024 3:34 PM CDT [facility] Blood BLOOD SPECIMEN / Unknown Non-Lab Venipuncture / Unknown 10/06/2024 3:20 PM CDT 10/06/2024 3:29 PM CDT Narrative [facility] - 10/06/2024 3:34 PM CDT RN to order if patient presents with abdominal pain. [facility] Ed Triage HEMATOLOGY Final Result Performing Organization Address City/[facility] Co de Phone Number [address] [address] * LIPASE (10/06/2024 3:20 PM CDT) LIPASE 22.3 13.0 - 60.0 IU/L 10/06/2024 5:26 PM CDT [facility] Blood BLOOD SPECIMEN / Unknown Non-Lab Venipuncture / Unknown 10/06/2024 3:20 PM CDT 10/06/2024 3:29 PM CDT Fide Lazar MD CHEMISTRY Fi nal Result Performing Organization Address [facility]/ZIP Co de Phone Number [address] [address] * (ABNORMAL) HEPATIC FUNCTION PANEL (10/06/2024 3:20 PM CDT) ALBUMIN 4.4 4.0 - 4.9 g/dL 10/06/2024 5:33 PM CDT [facility] PROTEIN,TOTAL 7.2 6.0 - 8.0 g/dL 10/06/2024 5:33 PM CDT [facility] BILIRUBIN,TOTAL 0.4 0.0 - 1.2 mg/dL 10/06/2024 5:33 PM CDT [facility] BILIRUBIN,DIRECT 0.1 0.0 - 0.2 mg/dL 10/06/2024 5:33 PM CDT [facility] BILIRUBIN,INDIRE CT 0.3 0.2 - 0.8 mg/dL 10/06/2024 5:33 PM CDT [facility] ALK PHOSPHATASE 70 35 - 104 IU/L 10/06/2024 5:33 PM CDT [facility] ALT (SGPT) 49(H) 10 - 35 IU/L 10/06/2024 5:33 PM CDT [facility] AST (SGOT) 47(H) 10 - 35 IU/L 10/06/2024 5:33 PM CDT [facility] Blood BLOOD SPECIMEN / Unknown Non-Lab Venipuncture / Unknown 10/06/2024 3:20 PM CDT 10/06/2024 3:29 PM CDT us Fide Lazar MD CHEMISTRY Fi nal Result [place] [id number] * (ABNORMAL) BASIC METABOLIC PANEL (10/06/2024 3:20 PM CDT) SODIUM 136 136 - 145 mmol/L 10/06/2024 3:52 PM CDT [facility] POTASSIUM 4.1 3.5 - 5.1 mmol/L 10/06/2024 3:52 PM CDT [facility] CHLORIDE 103 98 - 107 mmol/L 10/06/2024 3:52 PM CDT [facility] CO2,TOTAL 21(L) 22 - 29 mmol/L 10/06/2024 3:52 PM CDT [facility] ANION GAP 12 5 - 18 10/06/2024 3:52 PM CDT [facility] GLUCOSE 104(H) 70 - 99 mg/dL 10/06/2024 3:52 PM CDT [facility] CALCIUM 9.1 8.8 - 10.4 mg/dL 10/06/2024 3:52 PM CDT [facility] Comment: Reference ranges for this test were updated on 03/08/2024 to reflect our healthy population more accurately. Reference range changes are not retroactively applied to results, but previous results using the same methodology can be interpreted in the context of the new reference range. BUN 7 6 - 20 mg/dL 10/06/2024 3:52 PM CDT [facility] CREATININE 0.84 0.50 - 0.90 mg/dL 10/06/2024 3:52 PM CDT [facility] BUN/CREAT RATIO 8(L) 10 - 20 3:52 PM CDT [facility] eGFR 87(L) >90 mL/min/1.7 3m2 10/06/2024 3:52 PM CDT [facility] Comment:As of 2021, eG FR is calculated by the CKD-EPI creatinine equation without race adjustment. eGFR can be influenced by muscle mass, exercise, and diet. The reported eGFR is an estimation only and is only applicable if the renal function is stable. Blood BLOOD SPECIMEN / Unknown Non-Lab Venipuncture / Unknown 10/06/2024 3:20 PM CDT 10/06/2024 3:29 PM CDT [facility] Ed Triage CHEMISTRY Final Result [facility] [address] [place] [address] * (ABNORMAL) URINE CULTURE [46871.2] - routine (09/05/2024 5:03 PM CDT) CULTURE RESULT(A) 09/07/2024 10:06 PM CDT [facility] CULTURE >100,000 CFU/mL Escherichia coli 09/07/2024 10:06 PM CDT [facility] Urine URINE SPECIMEN / Unknown Non-Blood / Unknown 09/05/2024 5:03 PM CDT 09/05/2024 5:03 PM CDT Narrative Organism Antibiotic Method Susceptibility Escherichia coli TRIMETHOPRIM/SULF <=1/19: S Escherichia coli AMPICILLIN <=2: S Escherichia coli CEFAZOLIN 2: S Escherichia coli CEFAZOLIN-UC 2: S Comment:Cefazolin-UC interpretations are for therapy of uncomplicated UTIs due to E.coli, K.pneumoniae, or P.mirablis. Cefazolin breakpoint is used as a surrogate to predict results for the oral agents - cefdinir, cefuroxime, and cephalexin, when used for therapy of uncomplicated UTIs due to E coli, K, pneumoniae, and P. mirabilis. The FDA recommends cefadroxil susceptibility can be deduced from cefazolin. Escherichia coli GENTAMICIN <=1: S Escherichia coli CEFTRIAXONE <=0.25: S Escherichia coli CEFTAZIDIME <=0.5: S Escherichia coli LEVOFLOXACIN <=0.12: S Escherichia coli CIPROFLOXACIN <=0.06: S Escherichia coli PIPERACILLIN/TAZO <=4: S Escherichia coli AMPICILLIN/SULBACTAM <=2: S Escherichia coli CEFEPIME <=0.12: S Escherichia coli MEROPENEM <=0.25: S Escherichia coli NITROFURANTOIN <=16: S Katy BOLANOS MICROBIOLOGY Final Re sult [facility] [address] [place] [address], * HPV HIGH RISK (01/15/2023 11:15 AM CDT) TYPE 16 Negative Negative 01/19/2023 1:53 PM CDT [facility] TYPE 18 Negative Negative 01/19/2023 1:53 PM CDT [facility] OTHER HIGH RISK TYPES Negative Negative 01/19/2023 1:53 PM CDT [facility] TRA LABORATORY Other (Cervical) 01/15/2023 11:15 AM CDT 01/15/2023 5:48 PM CDT Narrative [facility] - 01/19/2023 1:53 PM CDT HPV types 16, 18, 31, 33, 35, 39, 45, 51, 52, 56, 58, 59, 66 and 68 DNA were undetectable or below the pre-set threshold. Methodology: Tiffanie Jalil 4800 HPV Test us Arlette Basilio CONTRACTING SPECIALIST MICROBIOLOGY Final Res ult [facility] [employer] [facility] [address] [place] [address], * ANTI HCV (05/20/2021 11:44 AM HORTICULTURAL SPECIALTY GROWER) HEPATITIS C ANTIBODY Non-React daja Non-React daja 05/20/2021 5:27 PM HORTICULTURAL SPECIALTY GROWER [facility] [employer] LABORATORY-[facility] TR[facility] Comment:Antibodies to HCV no t detected; does not exclude the possibility of exposure to HCV. Blood BLOOD SPECIMEN / Unknown Venipuncture / Unknown 05/20/2021 11:44 AM HORTICULTURAL SPECIALTY GROWER 05/20/2021 11:48 AM HORTICULTURAL SPECIALTY GROWER us Sandra Reno DO SEND OUTS Final Resul t [facility] [address] [place] [address], from Last 3 Months or Most Recently Relevant to Health Maintenance Insurance [facility] OF NON-NM-ITS [facility] NON-NM-ITS Care Teams Data Reporting Analyst Relationship Specialty Start Date End Date Pcp, No . PCP - General 01/09/23
--- OUTSIDE RECORDS SUMMARY | 2024-10-28 01:07 | XMS_ITS | Encounter Summary ---
Author Organization [facility] Address [address] [place] [address] Care Team Providers Care Hand Tufter Name Role Phone Jessica Espinosa MD Primary Care Provider [phone] Lulu Lopez NP Unavailable Sean Ortega MD Unavailable [phone] Myranda Adams MD Unavailable [phone] Ralph Oh MD Unavailable Unavailable Encounter Details Date Type Department Care Team (Late st Contact Info) Description 06/26/2012 MyC Medical Advice [facility] [place] [facility] [address] [place] [address] Jessica Espinosa MD [facility] [address] [facility] [address] [place] [address] Social History Tobacco Use Types [...] AM CDT Legal Sex Female 4:14 AM CONCRETE FLOOR INSTALLER Gender Identity Female 07/15/2023 10:49 AM CDT [...] Out COVID-19 05/17/2021 05/17/2021 05/18/2021 2:11 AM CONCRETE FLOOR INSTALLER documented as of this encounter Care Teams Hand Tufter Relationship Specialty Start Date End Date Jessica Espinosa MD PCP - General 07/28/07 Lulu Lopez NP [facility] [place] [address] [place] [address] PCP - Obstetrics/Gynecology 02/05/07 Sean Ortega MD [facility] [place] [address] [place] [address] PCP - ENT 02/22/09 03/17/18 Myranda Adams MD [facility] [place] [address] [place] [address] PCP - Neurology 05/24/09 09/16/24 Ralph Oh MD RETIRED PCP - Orthopaedics Orthopedics 07/31/10 07/17/23 documented as of this encounter
--- OUTSIDE RECORDS SUMMARY | 2024-10-28 01:07 | XMS_ITS | Encounter Summary ---
Author Organization [facility] Address [address] [place] [address] Care Team Providers Care Plater Hot Dip Name Role Phone Jessica Espinosa MD Primary Care Provider [phone] Lulu Lopez NP Unavailable Sean Ortega MD Unavailable [phone] Myranda Adams MD Unavailable [phone] Ralph Oh MD Unavailable Unavailable Encounter Details Date Type Department Care Team (Late st Contact Info) Description 11/02/2012 MyC Medical Advice [facility] [place] [facility] [address] [place] [address] Jessica Espinosa MD [facility] [address] [facility] [address] [place] [address] Social History Tobacco Use Types [...] AM CDT Legal Sex Female 4:14 AM GARNETT MECHANIC Gender Identity Female 07/15/2023 10:49 AM [...] Out COVID-19 05/17/2021 05/17/2021 05/18/2021 2:11 AM GARNETT MECHANIC documented as of this encounter Care Teams Plater Hot Dip Relationship Specialty Start Date End Date Jessica Espinosa MD PCP - General 07/28/07 Lulu Lopez NP [facility] [place] [address] [place] [address] PCP - Obstetrics/Gynecology 02/05/07 Sean Ortega MD [facility] [place] [address] [place] [address] PCP - ENT 02/22/09 03/17/18 Myranda Adams MD [facility] [place] [address] [place] [address] PCP - Neurology 05/24/09 09/16/24 Ralph Oh MD RETIRED PCP - Orthopaedics Orthopedics 07/31/10 07/17/23 documented as of this encounter
--- OUTSIDE RECORDS SUMMARY | 2024-10-28 01:07 | XMS_ITS | Encounter Summary ---
Author Organization [facility] Address [address] [place] [address] Care Team Providers Care Architectural Representative Name Role Phone Jessica Espinosa MD Primary Care Provider [phone] Lulu Lopez NP Unavailable Sean Ortega MD Unavailable [phone] Myranda Adams MD Unavailable [phone] Ralph Oh MD Unavailable Unavailable Encounter Details Date Type Department Care Team (Late st Contact Info) Description 02/14/2009 MyC Medical Advice [facility] [place] [facility] [address] [place] [address] Jessica Espinosa MD [facility] [address] [place] [address] [address] [place] [address] Social History Tobacco Use Types Packs/Day Years Used Date Smoking Tobacco: Former Cigarettes 0.5 16 0 05/12/1992 - 05/12/2008 Comments:started age 11 Alcohol Use Standard Drinks/Week Comments Yes 0 (1 standard drink = 0.6 oz pur e alcohol) occasional Comments No Sex and Gender Information Value Date Recorded Sex Assigned at Female 07/15/2023 10:49 AM CDT Legal Sex Female 4:14 AM BEATER ROOM HELPER Gender Identity Female 07/15/2023 10:49 AM CDT [...] Out COVID-19 05/17/2021 05/17/2021 05/18/2021 2:11 AM BEATER ROOM HELPER documented as of this encounter Care Teams Architectural Representative Relationship Specialty Start Date End Date Jessica Espinosa MD PCP - General 07/28/07 Lulu Lopez NP [facility] [place] [address] [place] [address] PCP - Obstetrics/Gynecology 02/05/07 Sean Ortega MD [facility] [place] [address] [place] [address] PCP - ENT 02/22/09 03/17/18 Myranda Adams MD [facility] [place] [address] [place] [address] PCP - Neurology 05/24/09 09/16/24 Ralph Oh MD RETIRED PCP - Orthopaedics Orthopedics 07/31/10 07/17/23 documented as of this encounter
--- OUTSIDE RECORDS SUMMARY | 2024-10-28 01:07 | XMS_ITS | Encounter Summary ---
Author Organization [place] Address [address] [place] [address] Care Team Providers Care Sanitary Inspector Name Role Phone Jessica Espinosa MD Primary Care Provider Lulu Lopez NP Unavailable Sean Ortega MD Unavailable [phone] Myranda Adams MD Unavailable [phone] Ralph Oh MD Unavailable Unavailable Encounter Details Date Type Department Care Team (Late st Contact Info) Description 06/26/2012 MyC Medical Advice [facility] in [place] [facility] [address] [place] [address] Delgado Perry MD XX NO INFO FOUND XX [place], [place] [id number] Social History Tobacco Use Types Packs/Day Years [...] AM CDT Legal Sex Female 4:14 AM TRAUMA NURSE Gender Identity Female 07/15/2023 10:49 AM CDT [...] Out COVID-19 05/17/2021 05/17/2021 05/18/2021 2:11 AM TRAUMA NURSE documented as of this encounter Care Teams Sanitary Inspector Relationship Specialty Start Date End Date Jessica Espinosa MD PCP - General 07/28/07 Lulu Lopez, AIRCRAFT CYLINDER MECHANIC [facility] [place] [address] [place] [address] PCP - Obstetrics/Gynecology 02/05/07 Sean Ortega MD [facility] [place] [address] [place] [address] PCP - ENT 02/22/09 03/17/18 Myranda Adams MD [facility] [place] [address] [place] [address] PCP - Neurology 05/24/09 09/16/24 Ralph Oh MD RETIRED PCP - Orthopaedics Orthopedics 07/31/10 07/17/23 documented as of this encounter
--- OUTSIDE RECORDS SUMMARY | 2024-10-28 01:07 | XMS_ITS | Clinical Summary ---
Author Organization [facility] Address [address] [place] [address] Care Team Providers Care Cement Crusher Operator Name Role Phone Mellisa Donaldson DO Primary Care Pr ovider Allergies Active Allergy Reactions Criticality Noted Date Comments Adhesive Unknown 07/30/2013 ADHESIVE TAPE - Eye adhesive glue Amoxicillin-Pot Clavulanate Unknown Low 07/30/2013 Beta-Blockers (Beta-Adrenergic Blocking Agts) Other 04/08/2018 Patient is receiving allergen immunotherapy. Taking a beta ja while receiving Allergen Immunotherapy is contraindicated since beta blockers may interfere with treatment of anaphylaxis. Please inform prescribing direct mail marketer if beta ja therapy is needed. Immunotherapy start date: 04/12/2018. Patient is receiving allergen immunotherapy. Taking a beta ja while receiving Allergen Immunotherapy is contraindicated since beta blockers may interfere with treatment of anaphylaxis. Please inform prescribing direct mail marketer if beta ja therapy is needed. Immunotherapy start date: 04/12/2018. Patient is receiving allergen immunotherapy. Taking a beta ja while receiving Allergen Immunotherapy is contraindicated since beta blockers may interfere with treatment of anaphylaxis. Please inform prescribing direct mail marketer if beta ja therapy is needed. Immunotherapy start date: 04/12/2018. Cat Dander Other 07/30/2013 CATS Citalopram Nausea,Unknown Low 07/17/2000 ineffective + nausea (Celexa) Citalopram Hydrobromide 08/08/2024 Other Reaction(s): Not available citalopram hydrobromide Codeine Nausea 09/22/2003 Dihydroergotamine Difficulty breathing,Hives,I tching,Unknown High 07/17/2008 Itchy. Hives Dog Dander Unknown 07/11/2018 Grass Pollen 11/05/2001 Metaxalone 06/07/2024 Other Reaction(s): Not available metaxalone Prasterone (Dhea) 06/07/2024 Other Reaction(s): Not available prasterone Sumatriptan Succinate High 04/22/2007 Noted in 04/21/07 ER Venlafaxine Nausea,Other,Unkn own Medium 07/17/2000 severe SHUKLA + nausea(Effexor) Zolmitriptan Anaphylaxis,Itchi ng,Unknown High 12/06/2001 ZOLMITRIPTAN - ZOMIG: throat swelled,itchy ZOMIG: throat swelled,itchy Medications loratadine (CLARITIN) 10 mg oral tablet Take 1 tablet (10 mg) by mouth Daily. Active ondansetron (ZOFRAN) 4 mg oral tablet Take 1 tablet (4 mg) by mouth every 8 (eight) hours as needed. 50 tablet 6 4 Active lidocaine 4% (SALONPAS) 4 % Top patch Apply 1 patch to skin once daily. Keep on for 12 hours and remove for 12 hours. 30 patch 1 4 Active albuterol HFA (PROVENTIL;PHIL JEN HFA) 90 mcg/actuation Inhl inhaler INHALE 1 TO 2 PUFFS BY MOUTH EVERY 4 HOURS NEEDED FOR SHORTNESS OF BREATH OR FOR WHEEZE 4 Active atomoxetine (STRATTERA) 10 mg oral capsule TAKE ONE CAPSULE BY MOUTH EVERY MORNING (SWALLOW WHOLE) 5 Active dextroamphetamin e-amphetamine (ADDERALL) 10 mg oral tablet TAKE ONE TABLET BY MOUTH EVERY DAY FOR ONE WEEK, THEN INCREASE TO TAKE ONE TABLET BY MOUTH TWICE A DAY Active eptinezumab-jjmr (VYEPTI) 100 mg/mL IV Soln as directed Intravenous 5 Active EPINEPHrine (EPIPEN) 0.3 mg/0.3 mL Injection auto-injector inject into front part of thigh as needed for serious allergic reaction 5 Active rimegepant (NURTEC ODT) 75 mg oral TbDLIndications: Intractable chronic migraine with aura with status migrainosus Dissolve 1 tablet (75 mg) in mouth once a day as needed. 10 tablet 5 Active Hospital, Clinic, or Other Facility Administered Medication Ordered Dose Route Frequency Start Date End Date Status onabotulinumtoxinA (Botox) injection 100 UnitsIndications:Intractabl e chronic migraine without aura and without status migrainosus 100 Units IM ONCE 10/11/2024 10/11/2024 Ended Active Problems Problem Noted Date Diagnosed Date Shoulder pain 03/24/2024 Dyslipidemia 08/19/2023 Overview (06/07/2024): Dyslipidemia Intractable chronic migraine with aura with status migrainosus 05/14/2023 Conjunctivitis 02/27/2022 Overview (06/07/2024): Conjunctivitis Low back pain 02/28/2016 Overview (06/07/2024): Low back pain Tobacco user 02/28/2016 Overview (06/07/2024): Tobacco user Allergic rhinitis 07/30/2013 Overview (06/07/2024): Allergic rhinitis due to other allergen Insomnia 11/02/2012 Overview (06/07/2024): Problem list name updated by automated process. Provider to review Attention deficit hyperactivity disorder (ADHD) 02/12/2011 Overview (06/07/2024): Problem list name updated by automated process. Provider to review Chronic post-traumatic stress disorder (PTSD) Overview (06/07/2024): Posttraumatic Stress Disorder Common migraine with intractable migraine 2009 Overview (06/07/2024): Note the taper letter on 11/20/2011 is in error. Problem list name updated by automated process. Provider to review Dysmenorrhea 02/14/2009 Herpes simplex virus (HSV) infection 05/08/2006 Overview (06/07/2024): Problem list name updated by automated process. Provider to review Pain in joint, lower leg 2003 Encounters Date Type Department Care Team Description 10/11/2024 11:00 AM CDT Office Visit [address] [place] [phone] Lobo Jose MD Intractable chronic migraine without aura and without status migrainosus (Primary Dx) 09/07/2024 3:00 PM CDT Office Visit [address] [place] [phone] Lobo Jose MD Bilateral occipital neuralgia (Primary Dx); Diffuse myofascial pain syndrome 08/08/2024 3:00 PM CDT Office Visit [address] [place] [phone] Aleida Villeda PA-C Bilateral occipital neuralgia (Primary Dx); Diffuse myofascial pain syndrome from Last 3 Months Social History Tobacco Use Types Packs/Day Years Used Date Smoking Tobacco: Never Smokeless Tobacco: Never PHQ-2 Answer Date Recorded PHQ2 Total 0 06/25/2023 Comments Unknown Sex and Gender Information Value Date Recorded Sex Assigned at Female 04/04/2024 4:41 PM SHERIFFS Legal Sex Female 12:10 PM CDT Gender Identity Female 04/04/2024 4:41 PM SHERIFFS Sexual Orientation Bisexual 04/04/2024 4: 41 PM SHERIFFS Last Filed Vital Signs Vital Sign Reading Time Taken Comments Blood Pressure 114/81 09/06/2024 11:25 AM CDT Pulse 95 09/06/2024 11:25 AM CDT Temperature 37 C (98.6 F) 09/06/2024 10:41 AM CDT Respiratory Rate 16 09/06/2024 11:25 AM CDT Oxygen Saturation 93% 09/06/2024 11:25 AM CDT Inhaled Oxygen Concentration - - Weight 72.6 kg (160 lb) 06/07/2024 9:54 AM SHERIFFS Height 152.4 cm (5') 06/07/2024 9:54 AM SHERIFFS Body Mass Index 31.25 06/07/2024 9:54 AM SHERIFFS Plan of Treatment Health Maintenance Due Date Last Done Comments Colonoscopy 1979 Diabetes Screening 1979 Lipid Screening 1979 Mammogram Screening 1979 Pap Smear 1979 Anxiety Follow-Up (DOV-7) 1980 Depression Assessment (PHQ-2) 06/25/2024 06/25/2023 Adult Tetanus Booster 08/17/2033 08/18/2023 , 06/26/2011, 10/06/1994, Additional history exists RSV Vaccines (1 - 1-dose 75+ series) 2054 Hepatitis C Screening Completed 05/20/2021 COVID-19 Vaccine Completed 05/24/2024, , 05/14/2020 Influenza Vaccine Completed 05/24/2024, , 02/08/2019, Additional history exists Meningococcal B Vaccine Aged Out No l onger eligible based on patient's age to complete this topic Pneumococcal Vaccine Aged Out No long er eligible based on patient's age to complete this topic Insurance BCBS OUT OF STATE [employer] , [facility] [address] [place] [address] Care Teams Cement Crusher Operator Relationship Specialty Start Date End Date Mellisa Donaldson DO [address] [place] [address] PCP - General Family Medicine 04/16/23
--- OUTSIDE RECORDS SUMMARY | 2024-10-28 01:07 | XMS_ITS | Clinical Summary ---
Author Organization [facility] Address [address] [place] [address] Care Team Providers Care Leasing Consultant Name Role Phone Unavailable Primary Care Provider Unavailabl e Source Comments You are receiving this document as you are listed as the primary care provider,follow-up provider, or the patient has been referred to you for consultation.This is in compliance with the Medicare and[facility] EHR Incentive Program,which states Providers who transition their patient to another setting of careor provider of care or refers their patient to another provider of care shouldprovide summary care record for each transition of care or referral. [place] Allergies Active Allergy Reactions Criticality Noted Date Comments Adhesive Unknown 07/30/2013 ADHESIVE TAPE - Eye adhesive glue Amoxicillin-Pot Clavulanate Unknown Low 07/30/2013 Beta Adrenergic Blockers Unknown 04/08/2018 Patient is receiving allergen immunotherapy. Taking a beta ja while receiving Allergen Immunotherapy is contraindicated since beta blockers may interfere with treatment of anaphylaxis. Please inform prescribing public relations writer if beta ja therapy is needed. Immunotherapy start date: 04/12/2018. Citalopram Unknown 04/09/2009 Codeine Nausea And Vomiting 09/22/2003 Dihydroergotamine Unknown 04/09/2009 Dog Epithelium (Canis Lupus Familiaris) Unknown 07/11/2018 Venlafaxine Unknown 04/09/2009 Zolmitriptan Unknown 07/30/2013 ZOLMITRIPTAN - ZOMIG: throat swelled,itchy Medications amphetamine-dext roamphetamine (ADDERALL) 20 MG tablet Take 20 mg by mouth. 07/18/2020 Active aspirin-acetamin ophen-caffeine (EXCEDRIN MIGRAINE) 250-250-65 MG tablet Take 1 Tablet by mouth every 6 hours as needed. Active EPINEPHrine (EPIPEN) 0.3 MG/0.3ML injection 07/18/2020 Active AIMOVIG 140 MG/ML injection 08/29/2020 Act daja Active Problems No known active problems Social History Tobacco Use Types Packs/Day Years Used Date Smoking Tobacco: Every Day Smokeless Tobacco: Never Comments Unknown Sex and Gender Information Value Date Recorded Sex Assigned at Not on file Legal Sex Female 4:42 PM CDT Gender Identity Not on file Sexual Orientation Not on file Last Filed Vital Signs Vital Sign Reading Time Taken Comments Blood Pressure - - Pulse - - Temperature 37.5 C (99.5 F) 09/20/2020 5:20 PM CDT Respiratory Rate - - Oxygen Saturation - - Inhaled Oxygen Concentration - - Weight 61.2 kg (135 lb) 09/20/2020 5:20 PM CDT Height 152.4 cm (5') 09/20/2020 5:20 PM CDT Body Mass Index 26.37 09/20/2020 5:20 PM CDT Plan of Treatment Health Maintenance Due Date Last Done Comments Cervical Cancer Screening Due 1979 Colon Cancer Screening Plan Due 1979 Hep C Screening (Preventive Services) 1979 Mammogram 1979 IPV (Polio) Vaccine (2 of 3 - 4-dose series) 12/28/1980 11/30/1980 HIV Screening (Preventive Services) 1995 Adult Preventive Visit 1997 HepB Vaccine (1) 1998 Pneumococcal Vaccine (1 of 2 - PCV) 1998 DTaP/Tdap/Td Vaccine (4 - Tdap) 06/26/2021 06/26/2011, 10/06/1994, 11/30/1980 COVID-19 Vaccine (2 - 2023-2 5 season) 2024 05/14/2020 Cholesterol 2024 Influenza Vaccine (Season Ended) 2025 03/01/2019, 03/08/2018 Zoster/Shingles Vaccine (1 o f 2) 2029 HPV Vaccine Aged Out No longer eligi ble based on patient's age to complete this topic HepA Vaccine Aged Out No longer eligi ble based on patient's age to complete this topic Hib Vaccine Aged Out No longer eligi ble based on patient's age to complete this topic MCV4 Vaccine Aged Out No longer eligi ble based on patient's age to complete this topic Meningococcal B Vaccine Aged Out No l onger eligible based on patient's age to complete this topic Insurance [facility] [employer] [place] [id number]
--- OUTSIDE RECORDS SUMMARY | 2024-10-28 01:07 | XMS_ITS | Referral Summary ---
Author Organization [facility] Address [address] [place] [address] Care Team Providers Care Tire Classifier Name Role Phone Mellisa Donaldson Primary Care Pr ovider Encounters Date Type Department Care Team Description 10/11/2024 11:00 AM CDT Office Visit [address] [place] [phone] Lobo Jose MD Intractable chronic migraine without aura and without status migrainosus (Primary Dx) 09/07/2024 3:00 PM CDT Office Visit [address] [place] [phone] Lobo Jose MD Bilateral occipital neuralgia (Primary Dx); Diffuse myofascial pain syndrome 08/08/2024 3:00 PM CDT Office Visit [address] [place] [phone] lAeida Villeda PA-C Bilateral occipital neuralgia (Primary Dx); Diffuse myofascial pain syndrome from Last 3 Months Allergies Active Allergy Reactions Criticality Noted Date Comments Adhesive Unknown 07/30/2013 ADHESIVE TAPE - Eye adhesive glue Amoxicillin-Pot Clavulanate Unknown Low 07/30/2013 Beta-Blockers (Beta-Adrenergic Blocking Agts) Other 04/08/2018 Patient is receiving allergen immunotherapy. Taking a beta ja while receiving Allergen Immunotherapy is contraindicated since beta blockers may interfere with treatment of anaphylaxis. Please inform prescribing nursing scheduler if beta ja therapy is needed. Immunotherapy start date: 04/12/2018. Patient is receiving allergen immunotherapy. Taking a beta ja while receiving Allergen Immunotherapy is contraindicated since beta blockers may interfere with treatment of anaphylaxis. Please inform prescribing nursing scheduler if beta ja therapy is needed. Immunotherapy start date: 04/12/2018. Patient is receiving allergen immunotherapy. Taking a beta ja while receiving Allergen Immunotherapy is contraindicated since beta blockers may interfere with treatment of anaphylaxis. Please inform prescribing nursing scheduler if beta ja therapy is needed. Immunotherapy [...] a day as needed. 10 tablet 5 5 Active Hospital, Clinic, or Other Facility [...] review Pain in joint, lower leg 2003 Social History Tobacco Use Types Packs/Day Years Used Date Smoking Tobacco: Never Smokeless Tobacco: Never PHQ-2 Answer Date Recorded PHQ2 Total 0 06/25/2023 Comments Unknown Sex and Gender Information Value Date Recorded Sex Assigned at Female 04/04/2024 4:41 PM SAP PI DEVELOPER Legal Sex Female 12:10 PM CDT Gender Identity Female 04/04/2024 4:41 PM SAP PI DEVELOPER Sexual Orientation Bisexual 04/04/2024 4: 41 PM SAP PI DEVELOPER Last Filed Vital Signs Vital Sign Reading Time Taken Comments Blood Pressure 114/81 09/06/2024 11:25 AM CDT Pulse 95 09/06/2024 11:25 AM CDT Temperature 37 C (98.6 F) 09/06/2024 10:41 AM CDT Respiratory Rate 16 09/06/2024 11:25 AM CDT Oxygen Saturation 93% 09/06/2024 11:25 AM CDT Inhaled Oxygen Concentration - - Weight 72.6 kg (160 lb) 06/07/2024 9:54 AM SAP PI DEVELOPER Height 152.4 cm (5') 06/07/2024 9:54 AM SAP PI DEVELOPER Body Mass Index 31.25 06/07/2024 9:54 AM SAP PI DEVELOPER Plan of Treatment Not on file Insurance BCBS OUT OF STATE COMMERCIAL [facility] Address: [address] [address] [employer] , [facility] [address] [place] [address] Care Teams Tire Classifier Relationship Specialty Start Date End Date Mellisa Donaldson DO [address] [id number] PCP - General Family Medicine 04/16/23
--- OUTSIDE RECORDS SUMMARY | 2024-10-28 01:07 | XMS_ITS | Encounter Summary ---
Author Organization [place] Address [address] [place] [address] Care Team Providers Care General Merchandise Salesperson Name Role Phone Jessica Espinosa MD Primary Care Provider [phone] Lulu Lopez NP Unavailable Sean Ortega MD Unavailable [phone] Myranda Adams MD Unavailable [phone] Ralph Oh MD Unavailable Unavailable Encounter Details Date Type Department Care Team (Late st Contact Info) Description 01/18/[address] [facility] [place] [facility] [address] [place] [address] Jessica Espinosa MD [facility] [address] [place] [address] [address] [place] [address] Social History Tobacco Use Types Packs/Day Years Used Date Smoking Tobacco: Former Cigarettes 0.5 16 0 05/12/1992 - 05/12/2008 Comments:started age 11 Alcohol Use Standard Drinks/Week Comments Yes 0 (1 standard drink = 0.6 oz pur e alcohol) occasional Comments No Sex and Gender Information Value Date Recorded Sex Assigned at Female 07/15/2023 10:49 AM CDT Legal Sex Female 4:14 AM FASTENER TECHNOLOGIST Gender Identity Female 07/15/2023 10:49 AM CDT [...] Out COVID-19 05/17/2021 05/17/2021 05/18/2021 2:11 AM FASTENER TECHNOLOGIST documented as of this encounter Care Teams General Merchandise Salesperson Relationship Specialty Start Date End Date Jessica Espinosa MD PCP - General 07/28/07 Lulu Lopez NP [facility] [place] [address] [place] [address] PCP - Obstetrics/Gynecology 02/05/07 Sean Ortega MD [facility] [place] [address] [place] [address] PCP - ENT 02/22/09 03/17/18 Myranda Adams MD [facility] [place] [address] [place] [address] PCP - Neurology 05/24/09 09/16/24 Ralph Oh MD RETIRED PCP - Orthopaedics Orthopedics 07/31/10 07/17/23 documented as of this encounter
--- OUTSIDE RECORDS SUMMARY | 2024-10-28 01:08 | XMS_ITS | Encounter Summary ---
Author Organization [place] Address [address] [place] [address] Care Team Providers Care Mixer Pigment Name Role Phone Jessica Espinosa MD Primary Care Provider [phone] Lulu Lopez NP Unavailable Sean Ortega MD Unavailable [phone] Myranda Adams MD Unavailable [phone] Ralph Oh MD Unavailable Unavailable Encounter Details Date Type Department Care Team (Late st Contact Info) Description 01/16/2010 MyC Medical Advice [facility] in [place] [facility] [address] [place] [phone] Myranda Adams MD [address] [place] [address] Social History Tobacco Use Types Packs/Day Years [...] AM CDT Legal Sex Female 4:14 AM PANTOGRAPH MACHINE SET UP OPERATOR Gender Identity Female 07/15/2023 10:49 AM [...] Out COVID-19 05/17/2021 05/17/2021 05/18/2021 2:11 AM PANTOGRAPH MACHINE SET UP OPERATOR documented as of this encounter Care Teams Mixer Pigment Relationship Specialty Start Date End Date Jessica Espinosa MD PCP - General 07/28/07 Lulu Lopez, STAMPING DIE TRY OUT WORKER [facility] [place] [address] [place] [address] PCP - Obstetrics/Gynecology 02/05/07 Sean Ortega MD [facility] [place] [address] [place] [address] PCP - ENT 02/22/09 03/17/18 Myranda Adams MD [facility] [place] [address] [place] [address] PCP - Neurology 05/24/09 09/16/24 Ralph Oh MD RETIRED PCP - Orthopaedics Orthopedics 07/31/10 07/17/23 documented as of this encounter
--- OUTSIDE RECORDS SUMMARY | 2024-10-28 01:08 | XMS_ITS | Encounter Summary ---
Author Organization [facility] Address [address] [place] [address] Care Team Providers Care Bariatric Physician Name Role Phone Jessica Espinosa MD Primary Care Provider Lulu Lopez NP Unavailable Sean Ortega MD Unavailable [phone] Myranda Adams MD Unavailable [phone] Ralph Oh MD Unavailable Unavailable Encounter Details Date Type Department Care Team (Late st Contact Info) Description 06/13/2008 MyC Medical Advice [facility] in [place] ACCOUNT CONSULTANT [address] [place] [address] Lulu Lopez NP [facility] [place] [address] [facility] [address] [place] [address] Social History Tobacco Use Types Packs/Day Years Used Date Smoking Tobacco: Former Cigarettes 0.5 16 0 05/12/1992 - 05/12/2008 Comments:started age 11 Alcohol Use Standard Drinks/Week Comments Yes 0 (1 standard drink = 0.6 oz pur e alcohol) occasional Comments No Sex and Gender Information Value Date Recorded Sex Assigned at Female 07/15/2023 10:49 AM CDT Legal Sex Female 4:14 AM BRIM IRONER HAND Gender Identity Female 07/15/2023 10:49 AM [...] Out COVID-19 05/17/2021 05/17/2021 05/18/2021 2:11 AM BRIM IRONER HAND documented as of this encounter Care Teams Bariatric Physician Relationship Specialty Start Date End Date Jessica Espinosa MD PCP - General 07/28/07 Lulu Lopez, TEACHER COUNSELOR [facility] [place] [address] [place] [address] PCP - Obstetrics/Gynecology 02/05/07 Sean Ortega MD [facility] [place] [address] [place] [address] PCP - ENT 02/22/09 03/17/18 Myranda Adams MD [facility] [place] [address] [place] [address] PCP - Neurology 05/24/09 09/16/24 Ralph Oh MD RETIRED PCP - Orthopaedics Orthopedics 07/31/10 07/17/23 documented as of this encounter
--- OUTSIDE RECORDS SUMMARY | 2024-10-28 01:08 | XMS_ITS | Encounter Summary ---
Author Organization [facility] Address [address] [place] [address] Care Team Providers Care Telecommunications Project Manager Name Role Phone Jessica Espinosa MD Primary Care Provider [phone] Lulu Lopez NP Unavailable Sean Ortega MD Unavailable [phone] Myranda Adams MD Unavailable [phone] Ralph Oh MD Unavailable Unavailable Encounter Details Date Type Department Care Team (Late st Contact Info) Description 07/15/2011 MyC Medical Advice [facility] [place] [facility] [address] [place] [address] Jessica Espinosa MD [facility] [address] [place] [address] [address] [place] [address] Social History Tobacco Use Types [...] AM CDT Legal Sex Female 4:14 AM SKIP PITMAN Gender Identity Female 07/15/2023 10:49 AM CDT [...] Out COVID-19 05/17/2021 05/17/2021 05/18/2021 2:11 AM SKIP PITMAN documented as of this encounter Care Teams Telecommunications Project Manager Relationship Specialty Start Date End Date Jessica Espinosa MD PCP - General 07/28/07 Lulu Lopez NP [facility] [place] [address] [place] [address] PCP - Obstetrics/Gynecology 02/05/07 Sean Ortega MD [facility] [place] [address] [place] [address] PCP - ENT 02/22/09 03/17/18 Myranda Adams MD [facility] [place] [address] [place] [address] PCP - Neurology 05/24/09 09/16/24 Ralph Oh MD RETIRED PCP - Orthopaedics Orthopedics 07/31/10 07/17/23 documented as of this encounter
--- OUTSIDE RECORDS SUMMARY | 2024-10-28 01:08 | XMS_ITS | Encounter Summary ---
Author Organization [place] Address [address] [place] [address] Care Team Providers Care Mold Stacker Name Role Phone Jessica Espinosa MD Primary Care Provider [phone] Lulu Lopez NP Unavailable Sean Ortega MD Unavailable [phone] Myranda Adams MD Unavailable [phone] Ralph Oh MD Unavailable Unavailable Encounter Details Date Type Department Care Team (Late st Contact Info) Description 02/15/2008 [facility] in [address] [address] Delgado Holly MD [address] [place] [id number] Social History Tobacco Use Types Packs/Day Years [...] AM CDT Legal Sex Female 4:14 AM ACADEMIC REGISTRAR Gender Identity Female 07/15/2023 10:49 AM CDT [...] Out COVID-19 05/17/2021 05/17/2021 05/18/2021 2:11 AM ACADEMIC REGISTRAR documented as of this encounter Care Teams Mold Stacker Relationship Specialty Start Date End Date Jessica Espinosa MD PCP - General 07/28/07 Lulu Lopez NP [facility] [place] [address] [place], [place] [address] PCP - Obstetrics/Gynecology 02/05/07 Sean Ortega MD [facility] [place] [address] [place] [address] PCP - ENT 02/22/09 03/17/18 Myranda Adams MD [facility] [place] [address] [place] [address] PCP - Neurology 05/24/09 09/16/24 Ralph Oh MD RETIRED PCP - Orthopaedics Orthopedics 07/31/10 07/17/23 documented as of this encounter
--- OUTSIDE RECORDS SUMMARY | 2024-10-28 01:08 | XMS_ITS | Encounter Summary ---
Author Organization [place] Address [address] [place] [address] Care Team Providers Care Ink Technician Name Role Phone Jessica Espinosa MD Primary Care Provider [phone] Lulu Lopez NP Unavailable Sean Ortega MD Unavailable [phone] Myranda Adams MD Unavailable [phone] Ralph Oh MD Unavailable Unavailable Encounter Details Date Type Department Care Team (Late st Contact Info) Description 02/10/[address] [facility] [address] [place] [address] [place] [address] Thalia Kurtz MD [facility] [address] [place] [address] [address] [place] [address] Social History Tobacco Use Types [...] CDT Legal Sex Female 4:14 AM BEHAVIORAL HEALTH COUNSELOR Gender Identity Female 07/15/2023 10:49 AM CDT [...] COVID-19 05/17/2021 05/17/2021 05/18/2021 2:11 AM BEHAVIORAL HEALTH COUNSELOR documented as of this encounter Care Teams Ink Technician Relationship Specialty Start Date End Date Jessica Espinosa MD PCP - General 07/28/07 Lulu Lopez NP [facility] [place] [address] [place] [address] PCP - Obstetrics/Gynecology 02/05/07 Sean Ortega MD [facility] [place] [address] [place] [address] PCP - ENT 02/22/09 03/17/18 Myranda Adams MD [facility] [place] [address] [place] [address] PCP - Neurology 05/24/09 09/16/24 Ralph Oh MD RETIRED PCP - Orthopaedics Orthopedics 07/31/10 07/17/23 documented as of this encounter
--- OUTSIDE RECORDS SUMMARY | 2024-10-28 01:08 | XMS_ITS | Encounter Summary ---
Author Organization [facility] Address [address] [place] [address] Care Team Providers Care Aircraft Seat Upholsterer Name Role Phone Jessica Espinosa MD Primary Care Provider [phone] Lulu Lopez NP Unavailable Sean Ortega MD Unavailable [phone] Myranda Adams MD Unavailable [phone] Ralph Oh MD Unavailable Unavailable Encounter Details Date Type Department Care Team (Late st Contact Info) Description 10/24/2009 Abstract [facility] [place] Psychology [address] [place] [address] Frw, None Social History Tobacco Use Types Packs/Day Years [...] CDT Legal Sex Female 4:14 AM SUPERVISOR INSPECTING Gender Identity Female 07/15/2023 10:49 AM CDT [...] COVID-19 05/17/2021 05/17/2021 05/18/2021 2:11 AM SUPERVISOR INSPECTING documented as of this encounter Care Teams Aircraft Seat Upholsterer Relationship Specialty Start Date End Date Jessica Espinosa MD PCP - General 07/28/07 Lulu Lopez NP [facility] [place] [address] [place] [address] PCP - Obstetrics/Gynecology 02/05/07 Sean Ortega MD [facility] [place] [address] [place] [address] PCP - ENT 02/22/09 03/17/18 Myranda Adams MD [facility] [place] [address] [place] [address] PCP - Neurology 05/24/09 09/16/24 Ralph Oh MD RETIRED PCP - Orthopaedics Orthopedics 07/31/10 07/17/23 documented as of this encounter
--- OUTSIDE RECORDS SUMMARY | 2024-10-28 01:08 | XMS_ITS | Encounter Summary ---
Author Organization [place] Address [address] [place] [address] Care Team Providers Care Senior Production Supervisor Name Role Phone Jessica Espinosa MD Primary Care Provider [phone] Lulu Lopez NP Unavailable Sean Ortega MD Unavailable [phone] Myranda Adams MD Unavailable [phone] Ralph Oh MD Unavailable Unavailable Encounter Details Date Type Department Care Team (Late st Contact Info) Description 02/25/2008 Hospital [facility] in [facility] [address] [place] [phone] Farhad Unger MD [facility] [address] [place] [address] [address] [place] [address] Social History Tobacco Use Types [...] AM CDT Legal Sex Female 4:14 AM SERVICE PERSON Gender Identity Female 07/15/2023 10:49 AM CDT [...] Out COVID-19 05/17/2021 05/17/2021 05/18/2021 2:11 AM SERVICE PERSON documented as of this encounter Care Teams Senior Production Supervisor Relationship Specialty Start Date End Date Jessica Espinosa MD PCP - General 07/28/07 Lulu Lopez NP [facility] [place] [address] [place] [address] PCP - Obstetrics/Gynecology 02/05/07 Sean Ortega MD [facility] [place] [address] [place] [address] PCP - ENT 02/22/09 03/17/18 Myranda Adams MD [facility] [place] [address] [place] [address] PCP - Neurology 05/24/09 09/16/24 Ralph Oh MD RETIRED PCP - Orthopaedics Orthopedics 07/31/10 07/17/23 documented as of this encounter
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
== END 2024-10-27 14:40 | disposition home or self-care (01) ==
LOC: US 14:40
PROVIDERS: Visit Provider Registered Nurse
DX: R10.2 Pelvic and perineal pain (principal)
CPT/HCPCS: 76830; 76856

== ENCOUNTER 2025-01-27 14:34 | Outpatient (CLI) | payer BC, SELFPAY ==
[2025-01-27 18:01] LABS: Bacterial Vaginosis* POSITIVE (Negative); Candida glab/krus NOT DETECTED (No Detected)
[2025-01-27 18:32] LABS: Chlamydia DNA Amplified* NOT DETECTED (No Detected); GC DNA Amplified* NOT DETECTED (No Detected)
== END 2025-01-27 14:35 | disposition home or self-care (01) ==
PROVIDERS: Visit Provider Registered Nurse
DX: Z11.3 Encounter for screening for infections with a predominantly sexual mode of transmission (principal)
CPT/HCPCS: 81513; 86592; 86703; 86803; 87340; 87481; 87491; 87591; 87661